=== PATIENT | female | born 1970 | race African-American/Black ===

== ENCOUNTER 2017-01-10 12:14 | Inpatient (IN) | payer BC, OTHER ==
[2017-01-10] VITALS (11 sets, daily range): BP systolic 110–138; BP diastolic 51–78
[~2017-01-10] VITALS: Ht 162.6 cm; Wt 74.8 kg
[2017-01-10] MEDS ORDERED: ADENOSINE 6 MG/2 ML VIAL. IV ONE ×2 (12:23→13:15)
[2017-01-10] MEDS ORDERED: dilTIAZem IV PUSH 25 MG/5 ML VIAL ONE (12:52)
[2017-01-10] MEDS ORDERED: IV NORMAL SALINE 1000ML BAG 1,000 ML IV SCH (13:00)
[2017-01-10 13:02] LABS: BASO % 0 % (0-3); EOS % 1 % (0-3); HEMATOCRIT 34.6 % (36.0-47.0); HEMOGLOBIN 11.4 g/dL (12.0-15.5); LYMPH # 2.5 x10^3/uL (1.0-4.8); LYMPH % 57 % (24-48); MEAN CORPUSCULAR HEMOGLOBIN 28 pg (25-35); MEAN CORPUSCULAR HGB CONC 33 g/dL (31-37); MEAN CORPUSCULAR VOLUME 84 fL (79-100); MONO % 14 % (0-9); NEUT % 27 % (31-73); PLATELET COUNT 150 x10^3/uL (140-400); RED BLOOD COUNT 4.14 x10^6/uL (3.50-5.40); RED CELL DISTRIBUTION WIDTH 14.6 % (11.5-14.5); WHITE BLOOD COUNT 4.4 x10^3/uL (4.0-11.0)
[2017-01-10 13:09] LABS: CALCIUM 8.7 mg/dL (8.5-10.1); CREATININE 0.6 mg/dL (0.6-1.0); GFR 130.2; POTASSIUM 3.9 mmol/L (3.5-5.1)
[2017-01-10] MEDS ORDERED: LIDOCAINE 2% TOPICAL JELLY 30GM TUBE. TP ONE (13:12)
[2017-01-10] MEDS ORDERED: BENZOCAINE ONE 20% MUCOSAL SPRAY. (13:12)
[2017-01-10] MEDS ORDERED: LIDOCAINE 2% VISCOUS 15 ML SOLUTION. ONE (13:12)
[2017-01-10 13:15] LABS: ALBUMIN 3.2 g/dL (3.4-5.0); ALBUMIN/GLOBULIN RATIO 0.8 (1.0-1.7); TOTAL BILIRUBIN 2.6 mg/dL (0.2-1.0); TOTAL PROTEIN 7.2 g/dL (6.4-8.2)
[2017-01-10] MEDS ORDERED: dilTIAZem IV PUSH 25 MG/5 ML VIAL IVP ONE (13:15)
--- NOTE | 2017-01-10 13:19 | RAD ---
Single view chest radiograph 01/10/2017 Clinical indication: Tachycardia. Comparison: None. Findings: Mild enlargement of the cardiac silhouette. Probable trace left pleural effusion. No pneumothorax or focal consolidation. Impression: Mild cardiomegaly with probable trace left pleural effusion.
[2017-01-10] MEDS: IV NORMAL SALINE 1000ML BAG 1,000 ML IV SCH (13:24)
--- NOTE | 2017-01-10 13:24 | PHYS DOC ---
Past Medical History Past Medical History: Anxiety Past Surgical History: Other Additional Past Surgical Histo: back Alcohol Use: Occasionally Drug Use: None Adult General Chief Complaint Chief Complaint: RAPID HEART RATE HPI HPI Patient is a 46 year old female who presents with complaint of dizziness and shortness of breath. Patient states that her symptoms started today but states that she has had recurrent symptoms over the past several weeks. Patient notes however that she started having edema in her lower extremities over the past 2- 3 days which has caused her concern. Patient states that her shortness of breath worsens with exertion. Patient has slight chest pressure but denies pain. The patient was found to have a heart rate above 200 in triage. Patient states that she has had no formal medical evaluation for high heart rate and is not on any heart medications at this time. Patient denies any fevers, nausea, or vomiting. Review of Systems Review of Systems Constitutional: Denies fever or chills [] Eyes: Denies change in visual acuity, redness, or eye pain [] HENT: Denies nasal congestion or sore throat [] Respiratory: Shortness of breath [] Cardiovascular: Chest pressure, dyspnea on exertion, lower extremity edema [] GI: Denies abdominal pain, nausea, vomiting, bloody stools or diarrhea [] : Denies dysuria or hematuria [] Musculoskeletal: Denies back pain or joint pain [] Integument: Denies rash or skin lesions [] Neurologic: Denies headache, focal weakness or sensory changes [] Current Medications Current Medications Current Medications Medications (Trade) Dose Ordered Sig/Byron Start Time Stop Time Status Last Admin Dose Admin Adenosine (Adenocard) 6 mg STK-MED ONCE 01/10/17 12:23 01/10/17 12:24 DC Diltiazem HCl (Cardizem) 25 mg STK-MED ONCE 01/10/17 12:52 01/10/17 12:53 DC Diltiazem HCl 125 mg/Dextrose 125 ml @ 0 mls/hr CONT PRN 01/10/17 13:00 Sodium Chloride 1,000 ml @ 100 mls/hr Q10H 01/10/17 13:00 01/10/17 22:59 Allergies Allergies Allergies Coded Allergies Type Severity Reaction Last Updated Verified No Known Drug Allergies 01/10/17 No Physical Exam Physical Exam Constitutional: Alert, afebrile, anxious, appears in moderate discomfort. [] HENT: Normocephalic, atraumatic, bilateral external ears normal, oropharynx moist, no oral exudates, nose normal. [] Eyes: PERRLA, EOMI, conjunctiva normal, no discharge. [] Neck: Normal range of motion, no tenderness, supple, no stridor. [] Cardiovascular: Tachycardia, irregular rhythm, no murmur [] Lungs & Thorax: None restricted air movement bilaterally, fine rales in bilateral lung bases [] Abdomen: Bowel sounds normal, soft, no tenderness, no masses, no pulsatile masses. [] Skin: Warm, dry, no erythema, no rash. [] Back: No tenderness, no CVA tenderness. [] Extremities: No tenderness, no cyanosis, no clubbing, ROM intact, 1+ pedal edema. [] Neurologic: Alert and oriented X 3, normal motor function, normal sensory function, no focal deficits noted. [] Current Patient Data Vital Signs Vital Signs Date Time Temp Pulse Resp B/P (MAP) Pulse Ox O2 Delivery O2 Flow Rate FiO2 01/10/17 13:00 178 139/78 (98) 99 01/10/17 12:24 98.9 22 Room Air 98.9 Lab Values Laboratory Tests Test 01/10/17 12:25 White Blood Count 4.4 x10^3/uL (4.0-11.0) Red Blood Count 4.14 x10^6/uL (3.50-5.40) Hemoglobin 11.4 g/dL (12.0-15.5) L Hematocrit 34.6 % (36.0-47.0) L Mean Corpuscular Volume 84 fL (79-100) Mean Corpuscular Hemoglobin 28 pg (25-35) Mean Corpuscular Hemoglobin Concent 33 g/dL (31-37) Red Cell Distribution Width 14.6 % (11.5-14.5) H Platelet Count 150 x10^3/uL (140-400) Neutrophils (%) (Auto) 27 % (31-73) L Lymphocytes (%) (Auto) 57 % (24-48) H Monocytes (%) (Auto) 14 % (0-9) H Eosinophils (%) (Auto) 1 % (0-3) Basophils (%) (Auto) 0 % (0-3) Neutrophils # (Auto) 1.2 x10^3uL (1.8-7.7) L Lymphocytes # (Auto) 2.5 x10^3/uL (1.0-4.8) Monocytes # (Auto) 0.6 x10^3/uL (0.0-1.1) Eosinophils # (Auto) 0.0 x10^3/uL (0.0-0.7) Basophils # (Auto) 0.0 x10^3/uL (0.0-0.2) Sodium Level 140 mmol/L (136-145) Potassium Level 3.9 mmol/L (3.5-5.1) Chloride Level 108 mmol/L (98-107) H Carbon Dioxide Level 22 mmol/L (21-32) Anion Gap 10 (6-14) Blood Urea Nitrogen 9 mg/dL (7-20) Creatinine 0.6 mg/dL (0.6-1.0) Estimated GFR (Cockcroft-Gault) 130.2 BUN/Creatinine Ratio 15 (6-20) Glucose Level 108 mg/dL (70-99) H Calcium Level 8.7 mg/dL (8.5-10.1) Total Bilirubin 2.6 mg/dL (0.2-1.0) H Aspartate Amino Transferase (AST) 69 U/L (15-37) H Alanine Aminotransferase (ALT) 40 U/L (14-59) Alkaline Phosphatase 253 U/L (46-116) H Creatine Kinase 46 U/L (26-192) Creatine Kinase MB (Mass) < 0.5 ng/mL (0.0-3.6) Creatine Kinase MB Relative Index % (0-4) Troponin I Quantitative 0.017 ng/mL (0.000-0.055) RK-Vna-F-Type Natriuretic Peptide 2336 pg/mL (0-124) H Total Protein 7.2 g/dL (6.4-8.2) Albumin 3.2 g/dL (3.4-5.0) L Albumin/Globulin Ratio 0.8 (1.0-1.7) L Laboratory Tests 01/10/17 12:25 Laboratory Tests 01/10/17 12:25 EKG EKG Rhythm strip interpretation by me: Heart rate 230 bpm, A. fib with RVR versus possible SVT Radiology/Procedures Radiology/Procedures [facility] [address] [place] [address] IMAGING REPORT Signed PATIENT: BERTRAND SCHULTZ ACCOUNT: [id number] : 1970 LOCATION: ER AGE: 46 SEX: F EXAM STATUS: REG ER ORD. PHYSICIAN: BYRON NICHOLAS MD REASON: tachycardia PROCEDURE: PORTABLE CHEST 1V Single view chest radiograph 01/10/2017 Clinical indication: Tachycardia. Comparison: None. Findings: Mild enlargement of the cardiac silhouette. Probable trace left pleural effusion. No pneumothorax or focal consolidation. Impression: Mild cardiomegaly with probable trace left pleural effusion. DICTATED and SIGNED BY: RODRIGO ERAZO MD DATE: 01/10/171315 CC: BYRON NICHOLAS MD; UNKNOWN PCP NAME ~ [] Course & Med Decision Making Course & Med Decision Making Pertinent Labs and Imaging studies reviewed. (See chart for details) Patient was found to be in a life-threatening tachydysrhythmia upon arrival to the emergency department. Vagal maneuvers were attempted which did not cardiovert the patient. The patient was given 2 doses of IV adenosine. The first dose was 6 mg and the second was 12 mg. Both doses of medication failed to cardiovert the patient. I consulted Dr. Mohamud of cardiology who came to evaluate the patient at bedside. During evaluation, the patient was started on diltiazem treatment. The patient continues to have a tachycardia of 170-190 with irregular pattern consistent with A. fib with RVR. After discussing with the patient, she has agreed to go to PACU with Dr. Mohamud for echocardiogram and electrical cardioversion. Due to new onset, the patient will need admission to the hospital for more detailed cardiac workup. I spoke with Dr. Palencia who accepted care patient in hospital. Critical care time excluding procedures: 45 minutes Dragon Disclaimer Dragon Disclaimer This electronic medical record was generated, in whole or in part, using a voice recognition dictation system. Departure Departure Impression: Primary Impression: Atrial fibrillation with RVR Additional Impression: Acute congestive heart failure Disposition: ADMITTED INPATIENT Admitting Physician: Ra Palencia Condition: GUARDED Referrals: UNKNOWN PCP NAME (PCP) Problem Qualifiers Additional Impression: Acute congestive heart failure Congestive heart failure type: unspecified congestive heart failure type Qualified Codes: I50.9 - Heart failure, unspecified BYRON NICHOLAS MD Jan 10, 2017 13:24
[2017-01-10 13:29] LABS: CKMB MASS < 0.5 ng/mL (0.0-3.6); CREATINE KINASE 46 U/L (26-192)
[2017-01-10] MEDS ORDERED: ONDANSETRON PF 4 MG/2 ML VIAL. IV PRN ×2 (13:30→14:30)
[2017-01-10] MEDS ORDERED: ACETAMINOPHEN 325 MG TABLET. PO PRN ×2 (13:30→14:30)
[2017-01-10] MEDS ORDERED: LIDOCAINE 2% 100 MG/5 ML SYRINGE. ONE (13:35)
[2017-01-10] MEDS ORDERED: PROPOFOL 20 ML IV ONE ×2 (13:36→13:40)
--- NOTE | 2017-01-10 13:36 | ACF ---
Admit Criteria Forms Admit Criteria Forms Admit Criteria Forms ATRIAL FIBRILLATION Clinical Indications for Admission to Inpatient Care (Place 'X' for any and all applicable criteria): Admission indicated for ANY ONE of the following(1)(2)(3)(4)(5) : [ ]I. Myocardial ischemia [X]II. Dyspnea or hypoxemia [ ]III. Hemodynamic instability [ ]IV. Heart failure (e.g., pulmonary edema) (7) [ ]V. New-onset (less than 48 hours) atrial fibrillation with high risk for causing complications secondary to comorbidities (eg, symptomatic heart failure ) [ ]. Altered mental status [ ]VII. Syncope [ ]VIII. Patient has implantable cardioverter defibrillator that has fired more than once within past 24hr or needs immediate adjustment of settings that cannot be done other than in inpatient setting. (8) [ ]IX. Suspected accessory pathway (e.g., Imvea-Bqdgdoknr-Ihhjb syndrome) on ECG [ ]X. Recent systemic thromboembolism (eg, stroke) [ ]XI. Medication toxicity (e.g., digitalis) causing arrhythmia(9) [ ]XII. Underlying medical condition that necessitates inpatient care (e.g., thyrotoxicosis, pneumonia) (10) [ ]XIII. Continuous ECG monitoring is required for condition causing arrhythmia (e.g., severe hyperkalemia, hypokalemia, acid-base disturbance).(11)(12)(13) [ ]XIV. Initiation of antiarrhythmic drug therapy is needed in patient at high risk of adverse effects as indicated by ANY ONE of the following: [ ]a) Significant structural heart disease (e.g., reduced ejection fraction, congenital heart disease, valvular heart disease) [ ]b) Prolonged QT interval [ ]c) Underlying sinus node or atrioventricular conduction disturbances [ ]d) Need for treatment with antiarrhythmic drugs that have significant proarrhythmic potential (e.g., dofetilide, sotalol, procainamide) [ ]e) Patient whose sinus rhythm has never been observed on ECG [ ]XV. Intolerable symptoms despite optimal outpatient treatment [ ]XVI. Elective or urgent cardioversion that cannot be performed on outpatient basis or during observation care. [A] (Use also Atrial Fibrillation: Observation Care ) as appropriate.(14) [ ]XVII.Contraindications and/or Inappropriate clinical situations for Observational Care in patients with Atrial Fibrillation, when ANY ONE of the following is required: [ ]a) Patient with High risk of cardiac embolism (e.g, patients with previous cardiac embolism, LVEF < 40%, age >75 and patients with prosthetic valve) 18 [ ]b) Patient with Moderate risk including DM patient, CAD and patient aged 65-75 18 [ ]c) Patient with any change in cardiac biomarker especially troponin should be managed as high risk in an inpatient setting 19 [ ]d) Physician judgement irrespective of ECG and other diagnostic findings 20 [ ]XVIII.General contraindications and/or Inappropriate clinical situations for Observational Care in patients with Atrial Fibrillation, when ANY ONE of the following is required: [ ]a) Prediction of prolongation of LOS based on ANY ONE of the following may be considered as a contraindication for observational care 2, 3, 4, 5, 6, 7, 8, 9, 10, 11 [ ]i) Age > 65 yrs. [ ]ii) Patient arriving by ambulance [ ]iii) Patient with high acuity [ ]iv) Patient requiring vital sign monitoring [ ]v) Patient on IV medication [ ]b) Systolic blood pressures 180mmHg 3,12 [ ]c) Patient with altered mental status including delirium and other alteration of consciousness3 [ ]d) Patient whose discharge disposition will be to a penitentiary home or rehabilitation home should not be managed in Emergency Department Observation Unit. CMS rule requires 3 days hospital stay before such placement.3,13 [ ]e) Patient with failure to thrive due to broad array of etiologies 3,16,17 [ ]f) Inability to ambulate 3,14 Extended stay beyond goal length of stay may be needed for (1)(25)(26): [ ]a) Unstable comorbidities [ ]b) Persistently uncontrolled atrial fibrillation or other arrhythmias [ ]c) Acute thromboembolic event (e.g., stroke, limb ischemia) [ ]d) Need for inpatient attainment of full anticoagulation The original [employer] content created by [employer] has been revised. The portions of the content which have been revised are identified through the use of italic text or in bold, and [employer] has neither reviewed nor approved the modified material. All other unmodified content is copyright [employer]. Please see references footnoted in the original [employer] edition 2016 STEPHANIE SULTANA Jan 10, 2017 13:36
[2017-01-10] MEDS ORDERED: AMIODARONE 150 MG/3 ML VIAL ONE (13:53)
[2017-01-10] MEDS ORDERED: AMIODARONE 150 MG/3 ML VIAL IVP ONE ×2 (13:55→14:15)
--- NOTE | 2017-01-10 14:29 | PDOC1 ---
History and Physical Date of Admission Date of Admission 01/10/17 Identification/Chief Complaint Chief Complaint palpitation, dizzy Problems: Source Source: Chart review, Patient History of Present Illness History of Present Illness Patient is a 46 year old female who presents with complaint of dizziness, palpitation for a few weeks. Pt has no PCP, 1PPD. PT feels this palpitation, some sob, worse with exertion for weeks. She also feels some lightheaded, and noticed bl leg edema x2 days, and then came to ER. no fever, chills, N/V, cough, chest pain. in ER, she was found HR 200s, rapid afib, BP ok. pt got cardizem and adenosine , still rapid HR. Past Medical History Past Medical History anxiety Past Surgical History Past Surgical History back sx Family History Family History: Hypertension Social History Smoke: 1 pack per day Drugs: None Current Problem List Problem List Problems Medical Problems: (1) Acute congestive heart failure Status: Acute Current Medications Current Medications Current Medications Medications (Trade) Dose Ordered Sig/Byron Start Time Stop Time Status Last Admin Dose Admin Acetaminophen (Tylenol) 650 mg PRN Q4HRS PRN 01/10/17 13:30 01/11/17 13:29 Adenosine (Adenocard) 18 mg 1X ONCE 01/10/17 13:15 01/10/17 13:16 DC 01/10/17 13:02 18 MG Amiodarone HCl (Cordarone) 150 mg 1X ONCE 01/10/17 14:15 01/10/17 14:16 DC Benzocaine (Hurricaine One) 1 spray STK-MED ONCE 01/10/17 13:12 01/10/17 13:13 DC Diltiazem HCl (Cardizem) 20 mg 1X ONCE 01/10/17 13:15 01/10/17 13:16 DC 01/10/17 12:53 20 MG Diltiazem HCl 125 mg/Dextrose 125 ml @ 0 mls/hr CONT PRN 01/10/17 13:00 01/10/17 13:05 5 MLS/HR Enoxaparin Sodium (Lovenox 80mg Syringe) 80 mg 1X ONCE 01/10/17 13:15 01/10/17 13:16 DC 01/10/17 13:50 80 MG Lidocaine HCl (Lidocaine HCl 2% Abboject) 100 mg STK-MED ONCE 01/10/17 13:35 01/10/17 13:36 DC Lidocaine HCl (Viscous Lidocaine) 15 ml STK-MED ONCE 01/10/17 13:12 01/10/17 13:13 DC Lidocaine HCl (Xylocaine 2% Topical 30gm Tube) 30 lilli STK-MED ONCE 01/10/17 13:12 01/10/17 13:13 DC Ondansetron HCl (Zofran) 4 mg PRN Q8HRS PRN 01/10/17 13:30 01/11/17 13:29 Propofol 20 ml @ As Directed STK-MED ONCE 01/10/17 13:40 01/10/17 13:41 DC Sodium Chloride 1,000 ml @ 50 mls/hr Q20H 01/10/17 13:24 01/11/17 13:23 Allergies Allergies Allergies Coded Allergies Type Severity Reaction Last Updated Verified No Known Drug Allergies 01/10/17 No ROS Review of System CONSTITUTIONAL: No fever or chills EYES: No recent changes SKIN: No rash or itching CARDIOVASCULAR: No chest pain, syncope, palpitations, or edema RESPIRATORY: No SOB or cough GASTROINTESTINAL: No nausea, vomiting or abdominal pain NEUROLOGICAL: No headaches or weakness ENDOCRINE: No cold or heat intolerance GENITOURINARY: No urgency or frequency of urination MUSCULOSKELETAL: No back pain or joint pain LYMPHATICS: No enlarged lymph nodes PSYCHIATRIC: No anxiety or depression Physical Exam Physical Exam GEN.: No apparent distress. Alert and oriented. HEENT: Head is normocephalic, atraumatic NECK: Supple. LUNGS: Clear to auscultation. HEART: very fast, irregular at 160s, Peripheral pulses intact ABDOMEN: Soft, nontender. Positive bowel sounds. EXTREMITIES: Without any cyanosis. bl leg 2+ edema NEUROLOGIC: Normal speech, normal tone PSYCHIATRIC: Normal affect, normal mood. SKIN: No ulcerations Vitals Vitals Vital Signs Date Time Temp Pulse Resp B/P (MAP) Pulse Ox O2 Delivery O2 Flow Rate FiO2 01/10/17 14:00 Nasal Cannula 2 01/10/17 14:00 98.9 190 18 159/104 99 98.9 Labs Labs Laboratory Tests Test 01/10/17 12:25 White Blood Count 4.4 x10^3/uL (4.0-11.0) Red Blood Count 4.14 x10^6/uL (3.50-5.40) Hemoglobin 11.4 g/dL (12.0-15.5) Hematocrit 34.6 % (36.0-47.0) Mean Corpuscular Volume 84 fL (79-100) Mean Corpuscular Hemoglobin 28 pg (25-35) Mean Corpuscular Hemoglobin Concent 33 g/dL (31-37) Red Cell Distribution Width 14.6 % (11.5-14.5) Platelet Count 150 x10^3/uL (140-400) Neutrophils (%) (Auto) 27 % (31-73) Lymphocytes (%) (Auto) 57 % (24-48) Monocytes (%) (Auto) 14 % (0-9) Eosinophils (%) (Auto) 1 % (0-3) Basophils (%) (Auto) 0 % (0-3) Neutrophils # (Auto) 1.2 x10^3uL (1.8-7.7) Lymphocytes # (Auto) 2.5 x10^3/uL (1.0-4.8) Monocytes # (Auto) 0.6 x10^3/uL (0.0-1.1) Eosinophils # (Auto) 0.0 x10^3/uL (0.0-0.7) Basophils # (Auto) 0.0 x10^3/uL (0.0-0.2) Sodium Level 140 mmol/L (136-145) Potassium Level 3.9 mmol/L (3.5-5.1) Chloride Level 108 mmol/L (98-107) Carbon Dioxide Level 22 mmol/L (21-32) Anion Gap 10 (6-14) Blood Urea Nitrogen 9 mg/dL (7-20) Creatinine 0.6 mg/dL (0.6-1.0) Estimated GFR (Cockcroft-Gault) 130.2 BUN/Creatinine Ratio 15 (6-20) Glucose Level 108 mg/dL (70-99) Calcium Level 8.7 mg/dL (8.5-10.1) Total Bilirubin 2.6 mg/dL (0.2-1.0) Aspartate Amino Transf (AST/SGOT) 69 U/L (15-37) Alanine Aminotransferase (ALT/SGPT) 40 U/L (14-59) Alkaline Phosphatase 253 U/L (46-116) Creatine Kinase 46 U/L (26-192) Creatine Kinase MB (Mass) < 0.5 ng/mL (0.0-3.6) Creatine Kinase MB Relative Index % (0-4) Troponin I Quantitative 0.017 ng/mL (0.000-0.055) CD-Rmr-I-Type Natriuretic Peptide 2336 pg/mL (0-124) Total Protein 7.2 g/dL (6.4-8.2) Albumin 3.2 g/dL (3.4-5.0) Albumin/Globulin Ratio 0.8 (1.0-1.7) Laboratory Tests Test 01/10/17 12:25 White Blood Count 4.4 x10^3/uL (4.0-11.0) Red Blood Count 4.14 x10^6/uL (3.50-5.40) Hemoglobin 11.4 g/dL (12.0-15.5) Hematocrit 34.6 % (36.0-47.0) Mean Corpuscular Volume 84 fL (79-100) Mean Corpuscular Hemoglobin 28 pg (25-35) Mean Corpuscular Hemoglobin Concent 33 g/dL (31-37) Red Cell Distribution Width 14.6 % (11.5-14.5) Platelet Count 150 x10^3/uL (140-400) Neutrophils (%) (Auto) 27 % (31-73) Lymphocytes (%) (Auto) 57 % (24-48) Monocytes (%) (Auto) 14 % (0-9) Eosinophils (%) (Auto) 1 % (0-3) Basophils (%) (Auto) 0 % (0-3) Neutrophils # (Auto) 1.2 x10^3uL (1.8-7.7) Lymphocytes # (Auto) 2.5 x10^3/uL (1.0-4.8) Monocytes # (Auto) 0.6 x10^3/uL (0.0-1.1) Eosinophils # (Auto) 0.0 x10^3/uL (0.0-0.7) Basophils # (Auto) 0.0 x10^3/uL (0.0-0.2) Sodium Level 140 mmol/L (136-145) Potassium Level 3.9 mmol/L (3.5-5.1) Chloride Level 108 mmol/L (98-107) Carbon Dioxide Level 22 mmol/L (21-32) Anion Gap 10 (6-14) Blood Urea Nitrogen 9 mg/dL (7-20) Creatinine 0.6 mg/dL (0.6-1.0) Estimated GFR (Cockcroft-Gault) 130.2 BUN/Creatinine Ratio 15 (6-20) Glucose Level 108 mg/dL (70-99) Calcium Level 8.7 mg/dL (8.5-10.1) Total Bilirubin 2.6 mg/dL (0.2-1.0) Aspartate Amino Transf (AST/SGOT) 69 U/L (15-37) Alanine Aminotransferase (ALT/SGPT) 40 U/L (14-59) Alkaline Phosphatase 253 U/L (46-116) Creatine Kinase 46 U/L (26-192) Creatine Kinase MB (Mass) < 0.5 ng/mL (0.0-3.6) Creatine Kinase MB Relative Index % (0-4) Troponin I Quantitative 0.017 ng/mL (0.000-0.055) NL-Laq-V-Type Natriuretic Peptide 2336 pg/mL (0-124) Total Protein 7.2 g/dL (6.4-8.2) Albumin 3.2 g/dL (3.4-5.0) Albumin/Globulin Ratio 0.8 (1.0-1.7) VTE Prophylaxis Ordered VTE Prophylaxis Devices: Yes VTE Pharmacological Prophylaxi: Yes Assessment/Plan Assessment/Plan new onset afib with RVR tobaccoism dyspnea with acute CHF exacerbation, likely systolic and diastolic anxiety elevated transaminitis, possible 2/2 chf plan: card consulted, will do emergent cardioversion today check tsh, lipid panel, echo waiting for procedure and lab result, will need meds for card issues dvt ppx, may need AC. admit >2nights, ICU ob for today labs tmr EMMETT PEÑALOZA MD Jan 10, 2017 14:29
[2017-01-10] MEDS ORDERED: traMADol 50 MG TABLET PO PRN (14:30)
[2017-01-10] MEDS ORDERED: DOCUSATE SODIUM 100 MG CAPSULE. PO PRN (14:30)
[2017-01-10] MEDS ORDERED: hydrALAZINE 20 MG/ML VIAL. IVP PRN (14:30)
[2017-01-10] MEDS ORDERED: MORPHINE SULFATE 2 MG/ML DISP.SYRIN. IV PRN (14:30)
[2017-01-10] MEDS ORDERED: AMIODARONE 900 MG in IV DEXTROSE 5% 500 ML IV PRN ×5 (15:00→16:00)
[2017-01-10] MEDS ORDERED: ENOXAPARIN 40 MG/0.4 ML SYRINGE. SQ SCH (15:00)
[2017-01-10] MEDS ORDERED: AMIODARONE 150 MG in IV DEXTROSE 5% 100 ML IV ONE (15:00)
[2017-01-10] MEDS ORDERED: DIGOXIN IV 500 MCG/2 ML AMPUL. IV ONE (15:45)
--- NOTE | 2017-01-10 16:23 | CARD ---
APPROVED REPORT EXAM: Transesophageal echocardiogram with color flow Doppler and Synchronized Cardioversion. INDICATION Atrial Fibrillation Reason For Test : Rule out Intracardiac Thrombus. PROCEDURE After obtaining informed consent, patient underwent transesophageal echo in the PACU. Type of Sedation : General Anesthesia Sedation was provided by anesthesiologist, see EMR for medications administered. Transesophageal probe was inserted and advanced into esophagus by Elvin Mohamud MD. The BRANDEN was performed without complications. Synchronized Cardioversion attempted: Unsuccessful Rhythm following Synchronized Cardioversion: Atrial fibrillation Throughout the procedure, the blood pressure, pulse oximetry, cardiac rhythm, and rate were monitored . The patient tolerated the procedure without adverse effects. Recovery from conscious sedation was une ventful and vital signs were stable. LEFT VENTRICLE The left ventricle is normal size. There is normal left ventricular wall thickness. Left ventricle ej ection fraction is severely impaired. The Ejection Fraction is 15% by visual estimation. Due to HR > 200, this is likely underestimation. There is severe global hypokinesis of the left ventricle. No lef t ventricle thrombus noted on this study. There is no left ventricular aneurysm. RIGHT VENTRICLE The right ventricle is normal size. Systolic function is mildly to moderately reduced. ATRIA The left atrium appears dilated. The right atrium appears dilated. The interatrial septum is intact w ith no evidence for an atrial septal defect or patent foramen ovale as noted on 2-D or Doppler imagin g. There is no thrombus noted in the left atrial appendage. AORTIC VALVE The aortic valve is normal in structure and function. The aortic valve is trileaflet. Doppler and Col or Flow revealed no significant aortic regurgitation. There is no significant aortic valvular stenosi s. MITRAL VALVE The mitral valve is normal in structure. Doppler and Color Flow revealed mild mitral regurgitation. TRICUSPID VALVE The tricuspid valve is normal in structure. Doppler and Color Flow revealed mild tricuspid regurgitat ion. There is no tricuspid valve stenosis. PULMONIC VALVE The pulmonic valve is not well visualized. Doppler and Color Flow revealed no pulmonic valvular regur gitation. GREAT VESSELS The aortic root appears normal size. Normal pulmonary venous flow (Doppler). The IVC was visualized a nd appears normal in size. The SVC was visualized and appears normal in size. Critical Notification Critical Value: No <Conclusion> Left ventricle ejection fraction is severely impaired. The Ejection Fraction is 15% by visual estimat ion. Due to HR > 200, this is likely underestimation. There is severe global hypokinesis of the left ventricle. There is no thrombus noted in the left atrial appendage. Unsuccessful cardioversion
--- NOTE | 2017-01-10 17:11 | PDOC2 ---
CARDIOLOGY CONSULT NOTE CHEIF COMPLAINT: Shortness of breath and palpitations Problems: HPI: Pleasant 46-year-old woman who came into the ER with progressive dyspnea and palpitations. She was noted to be in atrial fibrillation with a rapid ventricular response initially thought to be possibly related to supraventricular tachycardia specifically AVNRT. She was given adenosine 3 up to a dose of 18 mg which did not resolve her problem. She was then started on a Cardizem drip. Despite this her heart rate was above 200 with persistent dyspnea and mild hypotension. In this setting a urgent T guided cardioversion was planned after discussion of risks and benefits with the patient. She was taken to the PACU and a transesophageal echo was performed which revealed moderate to severe LV dysfunction and no evidence of atrial thrombus. She was given anticoagulation prior to cardioversion with Lovenox. She had unsuccessful cardioversion 2 with a maximum of 360 J. Subsequently, she was also initiated on amiodarone therapy with intravenous drip after bolus. This ultimately stabilized her heart rate and brought it down to approximately 150 bpm. Given her significant LV dysfunction and persistent tachycardia she was transferred to the ICU. In the ICU she was also administered digoxin for further heart rate control. In speaking with the patient she reports that she's been ill for approximately 3 years and has not sought medical attention. She denies any syncope but does have chest pressure and dyspnea. Her family corroborates to us that she's been drinking heavily over the course of last 3 years up to half a pint daily. She also smokes heavily. 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 FAMHX: Noncontributory CURRENT MEDS: Current Medications Medications (Trade) Dose Ordered Sig/Byron Start Time Stop Time Status Last Admin Dose Admin Acetaminophen (Tylenol) 650 mg PRN Q6HRS PRN 01/10/17 14:30 Adenosine (Adenocard) 18 mg 1X ONCE 01/10/17 13:15 01/10/17 13:16 DC 01/10/17 13:02 18 MG Amiodarone HCl (Cordarone) 150 mg 1X ONCE 01/10/17 14:15 01/10/17 14:16 DC 01/10/17 14:20 150 MG Amiodarone HCl 150 mg/Dextrose 103 ml @ 618 mls/hr 1X ONCE 01/10/17 15:00 01/10/17 15:09 DC Amiodarone HCl 900 mg/Dextrose 518 ml @ 0 mls/hr CONT PRN 01/10/17 16:00 Benzocaine (Hurricaine One) 1 spray STK-MED ONCE 01/10/17 13:12 01/10/17 13:13 DC Digoxin (Lanoxin) 500 mcg 1X ONCE 01/10/17 15:45 01/10/17 15:46 DC 01/10/17 15:49 500 MCG Diltiazem HCl (Cardizem) 20 mg 1X ONCE 01/10/17 13:15 01/10/17 13:16 DC 01/10/17 12:53 20 MG Diltiazem HCl 125 mg/Dextrose 125 ml @ 0 mls/hr CONT PRN 01/10/17 13:00 01/10/17 13:05 5 MLS/HR Docusate Sodium (Colace) 100 mg PRN DAILY PRN 01/10/17 14:30 Enoxaparin Sodium (Lovenox 40mg Syringe) 40 mg Q24H 01/10/17 15:00 01/10/17 15:47 DC Enoxaparin Sodium (Lovenox 80mg Syringe) 80 mg BID 01/10/17 21:00 Hydralazine HCl (Apresoline) 10 mg PRN Q4HRS PRN 01/10/17 14:30 Lidocaine HCl (Lidocaine HCl 2% Abboject) 100 mg STK-MED ONCE 01/10/17 13:35 01/10/17 13:36 DC Lidocaine HCl (Viscous Lidocaine) 15 ml STK-MED ONCE 01/10/17 13:12 01/10/17 13:13 DC Lidocaine HCl (Xylocaine 2% Topical 30gm Tube) 30 lilli STK-MED ONCE 01/10/17 13:12 01/10/17 13:13 DC Morphine Sulfate 2 mg PRN Q2HR PRN 01/10/17 14:30 Ondansetron HCl (Zofran) 4 mg PRN Q6HRS PRN 01/10/17 14:30 Propofol 20 ml @ As Directed STK-MED ONCE 01/10/17 13:40 01/10/17 13:41 DC Sodium Chloride 1,000 ml @ 50 mls/hr Q20H 01/10/17 13:24 01/11/17 13:23 Tramadol HCl (Ultram) 50 mg PRN Q6HRS PRN 01/10/17 14:30 ALLERGIES: Allergies Coded Allergies Type Severity Reaction Last Updated Verified No Known Drug Allergies 01/10/17 No ROS: 14 point system was reviewed and is negative other then described in HPI and past medical and surgical history. PHYSICAL EXAM: Vital Signs: Vital Signs Date Time Temp Pulse Resp B/P (MAP) Pulse Ox O2 Delivery O2 Flow Rate FiO2 01/10/17 16:08 Nasal Cannula 2.0 01/10/17 15:49 157 116/76 01/10/17 15:15 22 99 01/10/17 14:45 98.9 98.9 Physical Exam: GEN.: Significant distress and anxiety related to tachyarrhythmia. Alert and oriented 3. HEENT: Head is normocephalic, atraumatic NECK: Supple. LUNGS: Clear to auscultation. HEART: Irregularly irregular. Difficult to auscultate heart sounds due to tachycardia. Diminished pulses. ABDOMEN: Mildly distended. Hypoactive bowel sounds. EXTREMITIES: Without any cyanosis. NEUROLOGIC: Normal speech, normal tone PSYCHIATRIC: Significant anxiety. SKIN: No ulcerations DIAGNOSTIC TESTING: Transesophageal echocardiogram demonstrates no evidence of atrial thrombus. She has no significant valvular heart disease. She does have diffuse global hypokinesis with ejection fraction of less than 25%.. Although the ejection fraction may be underestimated due to significant tachycardia. Lab Laboratory Tests Test 01/10/17 12:25 White Blood Count 4.4 x10^3/uL (4.0-11.0) Red Blood Count 4.14 x10^6/uL (3.50-5.40) Hemoglobin 11.4 g/dL (12.0-15.5) L Hematocrit 34.6 % (36.0-47.0) L Mean Corpuscular Volume 84 fL (79-100) Mean Corpuscular Hemoglobin 28 pg (25-35) Mean Corpuscular Hemoglobin Concent 33 g/dL (31-37) Red Cell Distribution Width 14.6 % (11.5-14.5) H Platelet Count 150 x10^3/uL (140-400) Neutrophils (%) (Auto) 27 % (31-73) L Lymphocytes (%) (Auto) 57 % (24-48) H Monocytes (%) (Auto) 14 % (0-9) H Eosinophils (%) (Auto) 1 % (0-3) Basophils (%) (Auto) 0 % (0-3) Neutrophils # (Auto) 1.2 x10^3uL (1.8-7.7) L Lymphocytes # (Auto) 2.5 x10^3/uL (1.0-4.8) Monocytes # (Auto) 0.6 x10^3/uL (0.0-1.1) Eosinophils # (Auto) 0.0 x10^3/uL (0.0-0.7) Basophils # (Auto) 0.0 x10^3/uL (0.0-0.2) Sodium Level 140 mmol/L (136-145) Potassium Level 3.9 mmol/L (3.5-5.1) Chloride Level 108 mmol/L (98-107) H Carbon Dioxide Level 22 mmol/L (21-32) Anion Gap 10 (6-14) Blood Urea Nitrogen 9 mg/dL (7-20) Creatinine 0.6 mg/dL (0.6-1.0) Estimated GFR (Cockcroft-Gault) 130.2 BUN/Creatinine Ratio 15 (6-20) Glucose Level 108 mg/dL (70-99) H Calcium Level 8.7 mg/dL (8.5-10.1) Total Bilirubin 2.6 mg/dL (0.2-1.0) H Aspartate Amino Transf (AST/SGOT) 69 U/L (15-37) H Alkaline Phosphatase 253 U/L (46-116) H Creatine Kinase 46 U/L (26-192) Creatine Kinase MB (Mass) < 0.5 ng/mL (0.0-3.6) Creatine Kinase MB Relative Index % (0-4) Total Protein 7.2 g/dL (6.4-8.2) Albumin 3.2 g/dL (3.4-5.0) L Albumin/Globulin Ratio 0.8 (1.0-1.7) L ASSESSMENT: 1. 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 Atrial for ablation with a rapid ventricular response 3. Tobacco abuse and alcohol abuse PLAN: 1. I discussed extensively with the patient's family and her regarding the gravity of her situation. It appears that she has been having trouble for several years now and unfortunate has had unwanted weight loss and hair loss. 2. We will check a TSH tomorrow morning. 3. Continue Lovenox 80 mg subcutaneous twice a day for an to regulation given recent cardioversion 4. Continue amiodarone drip 5. Continue digoxin load 6. Reassess need for further agents in 24 hours. Thank you for this consultation and we will follow along closely. Discussed with the ER staff and hospitalist service. LOPEZ GONZALEZ MD Jan 10, 2017 17:11
[2017-01-10] MEDS ORDERED: ALPRAZolam 0.25 MG TABLET PO PRN (17:30)
[2017-01-10] MEDS ORDERED: LORazepam 1 MG TABLET PO PRN (17:30)
[2017-01-10] MEDS: NICOTINE 21MG PATCH. TD SCH (17:54)
[2017-01-10] MEDS ORDERED: PHENOL ORAL SPRAY 177ML BOTTLE. PO PRN (20:00)
[2017-01-10] MEDS: DIGOXIN IV 500 MCG/2 ML AMPUL. IV SCH (21:58)
[2017-01-11] VITALS (23 sets, daily range): BP systolic 97–140; BP diastolic 42–88
[2017-01-11] MEDS: DIGOXIN IV 500 MCG/2 ML AMPUL. IV SCH (04:13)
[2017-01-11 05:47] LABS: BASO % 0 % (0-3); EOS % 1 % (0-3); HEMATOCRIT 33.5 % (36.0-47.0); HEMOGLOBIN 11.1 g/dL (12.0-15.5); LYMPH # 3.3 x10^3/uL (1.0-4.8); LYMPH % 69 % (24-48); MEAN CORPUSCULAR HEMOGLOBIN 28 pg (25-35); MEAN CORPUSCULAR HGB CONC 33 g/dL (31-37); MEAN CORPUSCULAR VOLUME 84 fL (79-100); MONO % 13 % (0-9); NEUT % 17 % (31-73); PLATELET COUNT 132 x10^3/uL (140-400); RED BLOOD COUNT 4.01 x10^6/uL (3.50-5.40); RED CELL DISTRIBUTION WIDTH 14.8 % (11.5-14.5); WHITE BLOOD COUNT 4.7 x10^3/uL (4.0-11.0)
[2017-01-11 05:58] LABS: CALCIUM 8.7 mg/dL (8.5-10.1); CREATININE 0.5 mg/dL (0.6-1.0); GFR 160.7; POTASSIUM 3.9 mmol/L (3.5-5.1)
--- NOTE | 2017-01-11 06:02 | EKG ---
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
[2017-01-11 06:04] LABS: CHOLESTEROL/HDL RATIO 4.1
[2017-01-11 07:04] LABS: ALBUMIN/GLOBULIN RATIO 0.8 (1.0-1.7); CALCIUM 9.2 mg/dL (8.5-10.1); CREATININE 0.5 mg/dL (0.6-1.0); DIRECT BILIRUBIN 1.7 mg/dL (0.0-0.2); GFR 160.7; POTASSIUM 3.9 mmol/L (3.5-5.1); TOTAL BILIRUBIN 2.7 mg/dL (0.2-1.0); TOTAL PROTEIN 6.8 g/dL (6.4-8.2)
[2017-01-11] MEDS ORDERED: ANTI-COAG MONITOR BY PHARMACY. MC PRN (08:00)
[2017-01-11] MEDS ORDERED: FUROSEMIDE 40 MG/4 ML VIAL. IVP ONE (08:30)
[2017-01-11] MEDS ORDERED: DIGOXIN 125 MCG TABLET. PO ONE (08:30)
[2017-01-11 08:34] LABS: % EOS 1 % (0-5); PLT ESTIMATE ADEQUATE (ADEQUATE)
[2017-01-11] MEDS: NICOTINE 21MG PATCH. TD SCH (09:00)
[2017-01-11] MEDS: IV NORMAL SALINE 1000ML BAG 1,000 ML IV SCH (09:24)
--- NOTE | 2017-01-11 11:28 | CARD ---
APPROVED REPORT EXAM: Two-dimensional and M-mode echocardiogram with Doppler and color Doppler. Other Information Quality : GoodHR: 128bpm Rhythm : Atrial Fibrillation/Tachycardia INDICATION Atrial Fibrillation LV Function:Systolic Congestive Heart Failure 2D DIMENSIONS RVDd3.7 (2.9-3.5cm)Left Atrium(2D)4.0 (1.6-4.0cm) IVSd1.0 (0.7-1.1cm)Aortic Root(2D)3.0 (2.0-3.7cm) LVDd5.3 (3.9-5.9cm)LVOT Diameter2.3 (1.8-2.4cm) PWd0.7 (0.7-1.1cm)LVDs3.9 (2.5-4.0cm) FS (%) 26.4 %SV68.0 ml LVEF(%)51.3 (>50%) Aortic Valve AoV Peak Camron.169.3cm/sAoV VTI24.3cm AO Peak GR.11.5mmHgLVOT Peak Camron.127.6cm/s AO Mean GR.6mmHgAVA (VMAX)3.16cm2 Mitral Valve MV E Peak Gr.8mmHgMV E Mean Gr.6mmHg Pulmonary Valve PV Peak Qnexqsgl33.8cm/s Tricuspid Valve TR P. Diecpbof080xl/sTR Peak Gr.30mmHg Pulmonary Vein S1 Ibllnkgg68.8cm/s LEFT VENTRICLE The left ventricle is normal size. There is normal left ventricular wall thickness. Left ventricle sy stolic function is mildly impaired. The overall LV function has improved in comparison to 01/10/2017 TE E exam. The Ejection Fraction is now 40%. There is mild global hypokinesis of the left ventricle. The re is a flattened septum consistent with right ventricle volume overload. Tissue Doppler imaging reve als moderate left ventricular diastolic dysfunction. No left ventricle thrombus noted on this study. RIGHT VENTRICLE The right ventricle is mildly dilated. There is normal right ventricular wall thickness. The right ve ntricular systolic function is normal. ATRIA The left atrium is moderately dilated. The right atrium is mildly dilated. The interatrial septum is intact with no evidence for an atrial septal defect or patent foramen ovale as noted on 2-D or Dopple r imaging. AORTIC VALVE The aortic valve is mildly thickened. The aortic valve is trileaflet. Doppler and Color Flow revealed no significant aortic regurgitation. There is no significant aortic valvular stenosis. MITRAL VALVE There is no evidence of mitral valve prolapse. There is no mitral valve stenosis. Doppler and Color F low revealed mild mitral regurgitation. TRICUSPID VALVE Doppler and Color Flow revealed moderate tricuspid regurgitation. The pulmonary artery systolic press ure is estimated at 45 mmHg. There is mild pulmonary hypertension. PULMONIC VALVE The pulmonic valve is not well visualized but appears to open well. Doppler and Color Flow revealed m ild pulmonic valvular regurgitation. There is no pulmonic valvular stenosis by spectral Doppler. GREAT VESSELS The aortic root is normal in size. The ascending aorta is normal in size. The pulmonary artery is nor mal. The IVC is dilated and does not collapse with inspiration. PERICARDIAL EFFUSION Small left pleural effusion is noted. There is a trace circumferential pericardial effusion. Critical Notification Critical Value: No <Conclusion> Left ventricle systolic function is mildly impaired. The overall LV function has improved in comparis on to 01/10/2017 BRANDEN exam. The Ejection Fraction is now 40%. There is mild global hypokinesis of the left ventricle. There is a flattened septum consistent with r ight ventricle volume overload. Tissue Doppler imaging reveals moderate left ventricular diastolic dysfunction. The right ventricle is mildly dilated. Doppler and Color Flow revealed moderate tricuspid regurgitation. The pulmonary artery systolic press ure is estimated at 45 mmHg. There is mild pulmonary hypertension. The IVC is dilated and does not collapse with inspiration.
--- NOTE | 2017-01-11 12:22 | PDOC ---
PROGRESS NOTES Chief Complaint Chief Complaint new onset afib with RVR, acute diastolic CHF tobaccoism, she is motivated for cessation dyspnea with acute CHF exacerbation, likely systolic and diastolic anxiety d/o elevated transaminitis, possible 2/2 chf hyperthyroid, check Free t3 t4, start tapazole History of Present Illness History of Present Illness card consulted, will do emergent cardioversion today check tsh, lipid panel, echo waiting for procedure and lab result, will need meds for card issues dvt ppx, may need AC. admit >2nights, ICU ob for today labs tmr Vitals Vitals Vital Signs Date Time Temp Pulse Resp B/P (MAP) Pulse Ox O2 Delivery O2 Flow Rate FiO2 01/11/17 12:00 Room Air 01/11/17 12:00 98.1 115 18 113/72 (86) 99 98.1 01/10/17 16:35 2.0 Physical Exam General: Alert, Oriented X3, Cooperative, No acute distress Heart: Regular rate, No murmurs Lungs: Clear Abdomen: Normal bowel sounds, Soft, Other (some distention, ) Extremities: No clubbing, No cyanosis Skin: No breakdown Labs LABS Laboratory Tests Test 01/10/17 12:25 01/11/17 05:00 White Blood Count 4.4 x10^3/uL (4.0-11.0) 4.7 x10^3/uL (4.0-11.0) Red Blood Count 4.14 x10^6/uL (3.50-5.40) 4.01 x10^6/uL (3.50-5.40) Hemoglobin 11.4 g/dL (12.0-15.5) 11.1 g/dL (12.0-15.5) Hematocrit 34.6 % (36.0-47.0) 33.5 % (36.0-47.0) Mean Corpuscular Volume 84 fL (79-100) 84 fL (79-100) Mean Corpuscular Hemoglobin 28 pg (25-35) 28 pg (25-35) Mean Corpuscular Hemoglobin Concent 33 g/dL (31-37) 33 g/dL (31-37) Red Cell Distribution Width 14.6 % (11.5-14.5) 14.8 % (11.5-14.5) Platelet Count 150 x10^3/uL (140-400) 132 x10^3/uL (140-400) Neutrophils (%) (Auto) 27 % (31-73) 17 % (31-73) Lymphocytes (%) (Auto) 57 % (24-48) 69 % (24-48) Monocytes (%) (Auto) 14 % (0-9) 13 % (0-9) Eosinophils (%) (Auto) 1 % (0-3) 1 % (0-3) Basophils (%) (Auto) 0 % (0-3) 0 % (0-3) Neutrophils # (Auto) 1.2 x10^3uL (1.8-7.7) 0.8 x10^3uL (1.8-7.7) Lymphocytes # (Auto) 2.5 x10^3/uL (1.0-4.8) 3.3 x10^3/uL (1.0-4.8) Monocytes # (Auto) 0.6 x10^3/uL (0.0-1.1) 0.6 x10^3/uL (0.0-1.1) Eosinophils # (Auto) 0.0 x10^3/uL (0.0-0.7) 0.0 x10^3/uL (0.0-0.7) Basophils # (Auto) 0.0 x10^3/uL (0.0-0.2) 0.0 x10^3/uL (0.0-0.2) Sodium Level 140 mmol/L (136-145) 139 mmol/L (136-145) Potassium Level 3.9 mmol/L (3.5-5.1) 3.9 mmol/L (3.5-5.1) Chloride Level 108 mmol/L (98-107) 106 mmol/L (98-107) Carbon Dioxide Level 22 mmol/L (21-32) 20 mmol/L (21-32) Anion Gap 10 (6-14) 13 (6-14) Blood Urea Nitrogen 9 mg/dL (7-20) 11 mg/dL (7-20) Creatinine 0.6 mg/dL (0.6-1.0) 0.5 mg/dL (0.6-1.0) Estimated GFR (Cockcroft-Gault) 130.2 160.7 BUN/Creatinine Ratio 15 (6-20) 22 (6-20) Glucose Level 108 mg/dL (70-99) 102 mg/dL (70-99) Calcium Level 8.7 mg/dL (8.5-10.1) 9.2 mg/dL (8.5-10.1) Total Bilirubin 2.6 mg/dL (0.2-1.0) 2.7 mg/dL (0.2-1.0) Aspartate Amino Transf (AST/SGOT) 69 U/L (15-37) 56 U/L (15-37) Alanine Aminotransferase (ALT/SGPT) 40 U/L (14-59) 33 U/L (14-59) Alkaline Phosphatase 253 U/L (46-116) 230 U/L (46-116) Creatine Kinase 46 U/L (26-192) Creatine Kinase MB (Mass) < 0.5 ng/mL (0.0-3.6) Creatine Kinase MB Relative Index % (0-4) Troponin I Quantitative 0.017 ng/mL (0.000-0.055) LQ-Ezo-D-Type Natriuretic Peptide 2336 pg/mL (0-124) Total Protein 7.2 g/dL (6.4-8.2) 6.8 g/dL (6.4-8.2) Albumin 3.2 g/dL (3.4-5.0) 3.0 g/dL (3.4-5.0) Albumin/Globulin Ratio 0.8 (1.0-1.7) 0.8 (1.0-1.7) Segmented Neutrophils % 11 % (35-66) Band Neutrophils % 2 % (0-9) Lymphocytes % 75 % (24-48) Monocytes % 11 % (0-10) Eosinophils % 1 % (0-5) Platelet Estimate Adequate (ADEQUATE) Direct Bilirubin 1.7 mg/dL (0.0-0.2) Triglycerides Level 56 mg/dL (0-150) Cholesterol Level 78 mg/dL (0-200) LDL Cholesterol, Calculated 48 mg/dL (0-100) VLDL Cholesterol, Calculated 11 mg/dL (0-40) Non-HDL Cholesterol Calculated 59 mg/dL (0-129) HDL Cholesterol 19 mg/dL (40-60) Cholesterol/HDL Ratio 4.1 Thyroid Stimulating Hormone (TSH) < 0.007 uIU/mL (0.358-3.74) Review of Systems Review of Systems no n/v/d LE edema is better, abd distention has improved Assessment and Plan Assessmemt and Plan Problems Medical Problems: (1) Acute congestive heart failure Status: Acute Problems: Comment Review of Relevant I have reviewed the following items sloan (where applicable) has been applied. Labs Laboratory Tests Test 01/10/17 12:25 01/11/17 05:00 White Blood Count 4.4 x10^3/uL (4.0-11.0) 4.7 x10^3/uL (4.0-11.0) Red Blood Count 4.14 x10^6/uL (3.50-5.40) 4.01 x10^6/uL (3.50-5.40) Hemoglobin 11.4 g/dL (12.0-15.5) 11.1 g/dL (12.0-15.5) Hematocrit 34.6 % (36.0-47.0) 33.5 % (36.0-47.0) Mean Corpuscular Volume 84 fL (79-100) 84 fL (79-100) Mean Corpuscular Hemoglobin 28 pg (25-35) 28 pg (25-35) Mean Corpuscular Hemoglobin Concent 33 g/dL (31-37) 33 g/dL (31-37) Red Cell Distribution Width 14.6 % (11.5-14.5) 14.8 % (11.5-14.5) Platelet Count 150 x10^3/uL (140-400) 132 x10^3/uL (140-400) Neutrophils (%) (Auto) 27 % (31-73) 17 % (31-73) Lymphocytes (%) (Auto) 57 % (24-48) 69 % (24-48) Monocytes (%) (Auto) 14 % (0-9) 13 % (0-9) Eosinophils (%) (Auto) 1 % (0-3) 1 % (0-3) Basophils (%) (Auto) 0 % (0-3) 0 % (0-3) Neutrophils # (Auto) 1.2 x10^3uL (1.8-7.7) 0.8 x10^3uL (1.8-7.7) Lymphocytes # (Auto) 2.5 x10^3/uL (1.0-4.8) 3.3 x10^3/uL (1.0-4.8) Monocytes # (Auto) 0.6 x10^3/uL (0.0-1.1) 0.6 x10^3/uL (0.0-1.1) Eosinophils # (Auto) 0.0 x10^3/uL (0.0-0.7) 0.0 x10^3/uL (0.0-0.7) Basophils # (Auto) 0.0 x10^3/uL (0.0-0.2) 0.0 x10^3/uL (0.0-0.2) Sodium Level 140 mmol/L (136-145) 139 mmol/L (136-145) Potassium Level 3.9 mmol/L (3.5-5.1) 3.9 mmol/L (3.5-5.1) Chloride Level 108 mmol/L (98-107) 106 mmol/L (98-107) Carbon Dioxide Level 22 mmol/L (21-32) 20 mmol/L (21-32) Anion Gap 10 (6-14) 13 (6-14) Blood Urea Nitrogen 9 mg/dL (7-20) 11 mg/dL (7-20) Creatinine 0.6 mg/dL (0.6-1.0) 0.5 mg/dL (0.6-1.0) Estimated GFR (Cockcroft-Gault) 130.2 160.7 BUN/Creatinine Ratio 15 (6-20) 22 (6-20) Glucose Level 108 mg/dL (70-99) 102 mg/dL (70-99) Calcium Level 8.7 mg/dL (8.5-10.1) 9.2 mg/dL (8.5-10.1) Total Bilirubin 2.6 mg/dL (0.2-1.0) 2.7 mg/dL (0.2-1.0) Aspartate Amino Transf (AST/SGOT) 69 U/L (15-37) 56 U/L (15-37) Alanine Aminotransferase (ALT/SGPT) 40 U/L (14-59) 33 U/L (14-59) Alkaline Phosphatase 253 U/L (46-116) 230 U/L (46-116) Creatine Kinase 46 U/L (26-192) Creatine Kinase MB (Mass) < 0.5 ng/mL (0.0-3.6) Creatine Kinase MB Relative Index % (0-4) Troponin I Quantitative 0.017 ng/mL (0.000-0.055) SZ-Rjm-N-Type Natriuretic Peptide 2336 pg/mL (0-124) Total Protein 7.2 g/dL (6.4-8.2) 6.8 g/dL (6.4-8.2) Albumin 3.2 g/dL (3.4-5.0) 3.0 g/dL (3.4-5.0) Albumin/Globulin Ratio 0.8 (1.0-1.7) 0.8 (1.0-1.7) Segmented Neutrophils % 11 % (35-66) Band Neutrophils % 2 % (0-9) Lymphocytes % 75 % (24-48) Monocytes % 11 % (0-10) Eosinophils % 1 % (0-5) Platelet Estimate Adequate (ADEQUATE) Direct Bilirubin 1.7 mg/dL (0.0-0.2) Triglycerides Level 56 mg/dL (0-150) Cholesterol Level 78 mg/dL (0-200) LDL Cholesterol, Calculated 48 mg/dL (0-100) VLDL Cholesterol, Calculated 11 mg/dL (0-40) Non-HDL Cholesterol Calculated 59 mg/dL (0-129) HDL Cholesterol 19 mg/dL (40-60) Cholesterol/HDL Ratio 4.1 Thyroid Stimulating Hormone (TSH) < 0.007 uIU/mL (0.358-3.74) Laboratory Tests Test 01/10/17 12:25 01/11/17 05:00 White Blood Count 4.4 x10^3/uL (4.0-11.0) 4.7 x10^3/uL (4.0-11.0) Red Blood Count 4.14 x10^6/uL (3.50-5.40) 4.01 x10^6/uL (3.50-5.40) Hemoglobin 11.4 g/dL (12.0-15.5) 11.1 g/dL (12.0-15.5) Hematocrit 34.6 % (36.0-47.0) 33.5 % (36.0-47.0) Mean Corpuscular Volume 84 fL (79-100) 84 fL (79-100) Mean Corpuscular Hemoglobin 28 pg (25-35) 28 pg (25-35) Mean Corpuscular Hemoglobin Concent 33 g/dL (31-37) 33 g/dL (31-37) Red Cell Distribution Width 14.6 % (11.5-14.5) 14.8 % (11.5-14.5) Platelet Count 150 x10^3/uL (140-400) 132 x10^3/uL (140-400) Neutrophils (%) (Auto) 27 % (31-73) 17 % (31-73) Lymphocytes (%) (Auto) 57 % (24-48) 69 % (24-48) Monocytes (%) (Auto) 14 % (0-9) 13 % (0-9) Eosinophils (%) (Auto) 1 % (0-3) 1 % (0-3) Basophils (%) (Auto) 0 % (0-3) 0 % (0-3) Neutrophils # (Auto) 1.2 x10^3uL (1.8-7.7) 0.8 x10^3uL (1.8-7.7) Lymphocytes # (Auto) 2.5 x10^3/uL (1.0-4.8) 3.3 x10^3/uL (1.0-4.8) Monocytes # (Auto) 0.6 x10^3/uL (0.0-1.1) 0.6 x10^3/uL (0.0-1.1) Eosinophils # (Auto) 0.0 x10^3/uL (0.0-0.7) 0.0 x10^3/uL (0.0-0.7) Basophils # (Auto) 0.0 x10^3/uL (0.0-0.2) 0.0 x10^3/uL (0.0-0.2) Sodium Level 140 mmol/L (136-145) 139 mmol/L (136-145) Potassium Level 3.9 mmol/L (3.5-5.1) 3.9 mmol/L (3.5-5.1) Chloride Level 108 mmol/L (98-107) 106 mmol/L (98-107) Carbon Dioxide Level 22 mmol/L (21-32) 20 mmol/L (21-32) Anion Gap 10 (6-14) 13 (6-14) Blood Urea Nitrogen 9 mg/dL (7-20) 11 mg/dL (7-20) Creatinine 0.6 mg/dL (0.6-1.0) 0.5 mg/dL (0.6-1.0) Estimated GFR (Cockcroft-Gault) 130.2 160.7 BUN/Creatinine Ratio 15 (6-20) 22 (6-20) Glucose Level 108 mg/dL (70-99) 102 mg/dL (70-99) Calcium Level 8.7 mg/dL (8.5-10.1) 9.2 mg/dL (8.5-10.1) Total Bilirubin 2.6 mg/dL (0.2-1.0) 2.7 mg/dL (0.2-1.0) Aspartate Amino Transf (AST/SGOT) 69 U/L (15-37) 56 U/L (15-37) Alanine Aminotransferase (ALT/SGPT) 40 U/L (14-59) 33 U/L (14-59) Alkaline Phosphatase 253 U/L (46-116) 230 U/L (46-116) Creatine Kinase 46 U/L (26-192) Creatine Kinase MB (Mass) < 0.5 ng/mL (0.0-3.6) Creatine Kinase MB Relative Index % (0-4) Troponin I Quantitative 0.017 ng/mL (0.000-0.055) NT-Xln-O-Type Natriuretic Peptide 2336 pg/mL (0-124) Total Protein 7.2 g/dL (6.4-8.2) 6.8 g/dL (6.4-8.2) Albumin 3.2 g/dL (3.4-5.0) 3.0 g/dL (3.4-5.0) Albumin/Globulin Ratio 0.8 (1.0-1.7) 0.8 (1.0-1.7) Segmented Neutrophils % 11 % (35-66) Band Neutrophils % 2 % (0-9) Lymphocytes % 75 % (24-48) Monocytes % 11 % (0-10) Eosinophils % 1 % (0-5) Platelet Estimate Adequate (ADEQUATE) Direct Bilirubin 1.7 mg/dL (0.0-0.2) Triglycerides Level 56 mg/dL (0-150) Cholesterol Level 78 mg/dL (0-200) LDL Cholesterol, Calculated 48 mg/dL (0-100) VLDL Cholesterol, Calculated 11 mg/dL (0-40) Non-HDL Cholesterol Calculated 59 mg/dL (0-129) HDL Cholesterol 19 mg/dL (40-60) Cholesterol/HDL Ratio 4.1 Thyroid Stimulating Hormone (TSH) < 0.007 uIU/mL (0.358-3.74) Medications Current Medications Adenosine (Adenocard) 6 mg STK-MED ONCE IV ; Start 01/10/17 at 12:23; Stop at 12:24; Status DC Sodium Chloride 1,000 ml @ 100 mls/hr Q10H IV ; Start 01/10/17 at 13:00; Stop at 22:59; Status DC Diltiazem HCl (Cardizem) 25 mg STK-MED ONCE .ROUTE ; Start 01/10/17 at 12:52; Stop 01/10/17 at 12:53; Status DC Diltiazem HCl (Cardizem) 20 mg 1X ONCE IVP Last administered on 01/10/17 12:53 ; Start 01/10/17 at 13:15; Stop 01/10/17 at 13:16; Status DC Diltiazem HCl 125 mg/Dextrose 125 ml @ 0 mls/hr CONT PRN IV SEE I/O RECORD Last administered on 01/10/17 13:05; Start 01/10/17 at 13:00 Adenosine (Adenocard) 18 mg 1X ONCE IV Last administered on 01/10/17 13:02; Start 01/10/17 at 13:15; Stop 01/10/17 at 13:16; Status DC Enoxaparin Sodium (Lovenox 80mg Syringe) 80 mg 1X ONCE SQ Last administered on 01/10/17 13:50; Start 01/10/17 at 13:15; Stop 01/10/17 at 13:16; Status DC Lidocaine HCl (Viscous Lidocaine) 15 ml STK-MED ONCE .ROUTE ; Start 01/10/17 at 13:12; Stop 01/10/17 at 13:13; Status DC Benzocaine (Hurricaine One) 1 spray STK-MED ONCE .ROUTE ; Start 01/10/17 at 13:12 ; Stop 01/10/17 at 13:13; Status DC Lidocaine HCl (Xylocaine 2% Topical 30gm Tube) 30 lilli STK-MED ONCE TP ; Start at 13:12; Stop 01/10/17 at 13:13; Status DC Ondansetron HCl (Zofran) 4 mg PRN Q8HRS PRN IV NAUSEA/VOMITING; Start 01/10/17 at 13:30; Stop 01/11/17 at 13:29 Sodium Chloride 1,000 ml @ 50 mls/hr Q20H IV ; Start 01/10/17 at 13:24; Stop 01/11/17 at 13:23 Acetaminophen (Tylenol) 650 mg PRN Q4HRS PRN PO FEVER; Start 01/10/17 at 13:30; Stop 01/11/17 at 13:29 Lidocaine HCl (Lidocaine HCl 2% Abboject) 100 mg STK-MED ONCE .ROUTE ; Start 01/10/17 at 13:35; Stop 01/10/17 at 13:36; Status DC Propofol 20 ml @ As Directed STK-MED ONCE IV ; Start 01/10/17 at 13:36; Stop 01/10 at 13:37; Status DC Propofol 20 ml @ As Directed STK-MED ONCE IV ; Start 01/10/17 at 13:40; Stop 01/10 at 13:41; Status DC Amiodarone HCl (Cordarone) 150 mg STK-MED ONCE .ROUTE ; Start 01/10/17 at 13:53; Stop 01/10/17 at 13:54; Status DC Amiodarone HCl (Cordarone) 150 mg 1X ONCE IVP ; Start 01/10/17 at 13:55; Stop at 14:07; Status DC Amiodarone HCl (Cordarone) 150 mg 1X ONCE IVP Last administered on 01/10/17t 14 :20; Start 01/10/17 at 14:15; Stop 01/10/17 at 14:16; Status DC Acetaminophen (Tylenol) 650 mg PRN Q6HRS PRN PO FEVER; Start 01/10/17 at 14:30 Ondansetron HCl (Zofran) 4 mg PRN Q6HRS PRN IV NAUSEA/VOMITING; Start 01/10/17 at 14:30 Morphine Sulfate 2 mg PRN Q2HR PRN IV PAIN; Start 01/10/17 at 14:30 Tramadol HCl (Ultram) 50 mg PRN Q6HRS PRN PO PAIN; Start 01/10/17 at 14:30 Hydralazine HCl (Apresoline) 10 mg PRN Q4HRS PRN IVP ELEVATED BP, SEE COMMENTS ; Start 01/10/17 at 14:30 Docusate Sodium (Colace) 100 mg PRN DAILY PRN PO CONSTIPATION; Start 01/10/17 at 14:30 Enoxaparin Sodium (Lovenox 40mg Syringe) 40 mg Q24H SQ ; Start 01/10/17 at 15:00 ; Stop 01/10/17 at 15:47; Status DC Amiodarone HCl 150 mg/Dextrose 103 ml @ 618 mls/hr 1X ONCE IV ; Start 01/10/17 at 15:00; Stop 01/10/17 at 15:09; Status DC Amiodarone HCl 900 mg/Dextrose 518 ml @ 0 mls/hr CONT PRN IV SEE I/O RECORD Last administered on 01/10/17 15:55; Start 01/10/17 at 15:00; Stop 01/10/17 at 15: 56; Status DC Amiodarone HCl 900 mg/Dextrose 518 ml @ 0 mls/hr CONT PRN IV SEE I/O RECORD; Start 01/10/17 at 15:00; Stop 01/10/17 at 15:03; Status DC Digoxin (Lanoxin) 500 mcg 1X ONCE IV Last administered on 01/10/17 15:49; Start 01/10/17 at 15:45; Stop 01/10/17 at 15:46; Status DC Enoxaparin Sodium (Lovenox 80mg Syringe) 80 mg BID SQ Last administered on 09:12; Start 01/10/17 at 21:00 Amiodarone HCl 900 mg/Dextrose 518 ml @ 0 mls/hr CONT PRN IV SEE I/O RECORD Last administered on 01/11/17 07:32; Start 01/10/17 at 16:00; Stop 01/11/17 at 07: 33; Status DC Digoxin (Lanoxin) 250 mcg Q6H IV Last administered on 01/11/17 04:13; Start 01/10/17 at 22:00; Stop 01/11/17 at 04:01; Status DC Nicotine (Nicoderm Cq 21mg) 1 patch DAILY TD ; Start 01/10/17 at 18:00 Alprazolam (Xanax) 0.25 mg PRN Q8HRS PRN PO ANXIETY / AGITATION Last administered on 01/10/17 21:57; Start 01/10/17 at 17:30 Lorazepam (Ativan) 2 mg PRN Q2HR PRN PO For CIWA 8-14; Start 01/10/17 at 17:30 Throat Lozenges (Chloraseptic) 1 spray PRN Q2HR PRN PO SORE THROAT Last administered on 01/10/17 21:58; Start 01/10/17 at 20:00 Info (Anti-Coagulation Monitoring By Pharmacy) 1 each PRN DAILY PRN MC SEE COMMENTS Last administered on 01/11/17 07:50; Start 01/11/17 at 08:00 Furosemide (Lasix) 40 mg 1X ONCE IVP Last administered on 01/11/17 09:14; Start 01/11/17 at 08:30; Stop 01/11/17 at 08:32; Status DC Digoxin (Lanoxin) 125 mcg 1X ONCE PO Last administered on 01/11/17 09:12; Start 01/11/17 at 08:30; Stop 01/11/17 at 08:32; Status DC Vitals/I & O Vital Sign - Last 24 Hours 01/10/17 01/10/17 01/10/17 01/10/17 12:24 12:30 12:45 12:53 Temp 98.9 98.9 Pulse 240 242 242 240 Resp 22 B/P (MAP) 137/79 (98) 180/82 (114) 148/74 (98) 148/74 Pulse Ox 99 O2 Delivery Room Air 01/10/17 01/10/17 01/10/17 01/10/17 12:56 12:59 13:00 13:19 Pulse 178 B/P (MAP) 160/80 (106) 139/78 (98) 139/78 (98) 147/98 (114) Pulse Ox 99 01/10/17 01/10/17 01/10/17 01/10/17 13:39 13:45 14:00 14:00 Temp 98.6 98.9 98.6 98.9 Pulse 196 218 190 Resp 12 18 B/P (MAP) 147/98 (114) 144/85 159/104 Pulse Ox 99 99 O2 Delivery Nasal Cannula Nasal Cannula Nasal Cannula O2 Flow Rate 2 2 2 01/10/17 01/10/17 01/10/17 01/10/17 14:15 14:20 14:45 15:00 Temp 98.9 98.9 98.9 98.9 Pulse 167 68 160 160 Resp 12 20 B/P (MAP) 164/99 162/100 116/78 (91) 116/76 Pulse Ox 99 98 O2 Delivery Nasal Cannula Nasal Cannula O2 Flow Rate 2 2.0 01/10/17 01/10/17 01/10/17 01/10/17 15:00 15:15 15:49 16:08 Pulse 146 148 157 Resp 18 22 B/P (MAP) 114/66 (82) 110/76 (87) 116/76 Pulse Ox 98 99 O2 Delivery Nasal Cannula Nasal Cannula Nasal Cannula O2 Flow Rate 2.0 2.0 2.0 01/10/17 01/10/17 01/10/17 01/10/17 16:35 17:55 18:54 19:40 Pulse 144 157 145 133 Resp 20 18 20 22 B/P (MAP) 127/69 (88) 135/51 (79) 121/75 (90) 138/71 (93) Pulse Ox 100 99 99 98 O2 Delivery Nasal Cannula Room Air Room Air Room Air O2 Flow Rate 2.0 01/10/17 01/10/17 01/10/17 01/10/17 20:00 20:40 21:42 21:58 Temp 98.8 98.8 Pulse 141 136 136 Resp 18 18 B/P (MAP) 113/70 (84) 113/70 (84) 113/70 Pulse Ox 96 99 O2 Delivery Room Air Room Air Room Air 01/10/17 01/10/17 01/10/17 01/11/17 22:40 23:45 23:54 00:35 Pulse 117 124 130 B/P (MAP) 135/77 (96) 134/68 (90) 119/76 (90) Pulse Ox 99 98 97 O2 Delivery Room Air Room Air Room Air Room Air 01/11/17 01/11/17 01/11/17 01/11/17 01:46 03:00 04:00 04:00 Temp 98.4 98.4 Pulse 126 124 120 B/P (MAP) 127/72 (90) 140/75 (96) 117/74 (88) Pulse Ox 98 99 98 O2 Delivery Room Air Room Air Room Air Room Air 01/11/17 01/11/17 01/11/17 01/11/17 04:13 05:00 06:25 07:04 Pulse 115 107 124 119 B/P (MAP) 117/74 126/69 (88) 106/72 (83) 122/76 (91) Pulse Ox 98 98 99 O2 Delivery Room Air Room Air Room Air 01/11/17 01/11/17 01/11/17 01/11/17 08:00 08:00 09:00 09:12 Temp 98.6 98.6 Pulse 118 120 126 Resp 20 20 B/P (MAP) 119/60 (79) 124/70 (88) 124/70 Pulse Ox 96 98 O2 Delivery Room Air Room Air Room Air 01/11/17 01/11/17 01/11/17 01/11/17 10:00 11:00 12:00 12:00 Temp 98.1 98.1 Pulse 122 112 115 Resp 20 20 18 B/P (MAP) 135/76 (95) 137/66 (89) 113/72 (86) Pulse Ox 94 96 99 O2 Delivery Room Air Room Air Room Air Room Air Intake and Output 01/10/17 01/10/17 01/11/17 15:00 23:00 07:00 Intake Total 1005 ml 1400 ml 180 ml Output Total 300 ml 350 ml Balance 1005 ml 1100 ml -170 ml DESHAUN COLORADO MD Jan 11, 2017 12:22
--- NOTE | 2017-01-11 12:45 | PDOC ---
JOSE HENSLEY ESTHETICIAN 01/11/17 1245: CARDIO Progress Notes Date and Time Date of Service 01/11/17 Time of Evaluation 1145 Subjective Subjective: No Chest Pain, No shortness of breath, No Palpitations Vitals Vitals Vital Signs Date Time Temp Pulse Resp B/P (MAP) Pulse Ox O2 Delivery O2 Flow Rate FiO2 01/11/17 12:00 Room Air 01/11/17 12:00 98.1 115 18 113/72 (86) 99 98.1 01/10/17 16:35 2.0 Weight Weight [ ] Input and Output Intake and Output Intake and Output 01/11/17 07:00 Intake Total 2585 ml Output Total 650 ml Balance 1935 ml Intake Oral 1580 ml IV Total 1005 ml Output Urine Total 650 ml # Voids 1 Laboratory Labs Laboratory Tests Test 01/10/17 12:25 01/11/17 05:00 White Blood Count 4.4 x10^3/uL (4.0-11.0) 4.7 x10^3/uL (4.0-11.0) Red Blood Count 4.14 x10^6/uL (3.50-5.40) 4.01 x10^6/uL (3.50-5.40) Hemoglobin 11.4 g/dL (12.0-15.5) 11.1 g/dL (12.0-15.5) Hematocrit 34.6 % (36.0-47.0) 33.5 % (36.0-47.0) Mean Corpuscular Volume 84 fL (79-100) 84 fL (79-100) Mean Corpuscular Hemoglobin 28 pg (25-35) 28 pg (25-35) Mean Corpuscular Hemoglobin Concent 33 g/dL (31-37) 33 g/dL (31-37) Red Cell Distribution Width 14.6 % (11.5-14.5) 14.8 % (11.5-14.5) Platelet Count 150 x10^3/uL (140-400) 132 x10^3/uL (140-400) Neutrophils (%) (Auto) 27 % (31-73) 17 % (31-73) Lymphocytes (%) (Auto) 57 % (24-48) 69 % (24-48) Monocytes (%) (Auto) 14 % (0-9) 13 % (0-9) Eosinophils (%) (Auto) 1 % (0-3) 1 % (0-3) Basophils (%) (Auto) 0 % (0-3) 0 % (0-3) Neutrophils # (Auto) 1.2 x10^3uL (1.8-7.7) 0.8 x10^3uL (1.8-7.7) Lymphocytes # (Auto) 2.5 x10^3/uL (1.0-4.8) 3.3 x10^3/uL (1.0-4.8) Monocytes # (Auto) 0.6 x10^3/uL (0.0-1.1) 0.6 x10^3/uL (0.0-1.1) Eosinophils # (Auto) 0.0 x10^3/uL (0.0-0.7) 0.0 x10^3/uL (0.0-0.7) Basophils # (Auto) 0.0 x10^3/uL (0.0-0.2) 0.0 x10^3/uL (0.0-0.2) Sodium Level 140 mmol/L (136-145) 139 mmol/L (136-145) Potassium Level 3.9 mmol/L (3.5-5.1) 3.9 mmol/L (3.5-5.1) Chloride Level 108 mmol/L (98-107) 106 mmol/L (98-107) Carbon Dioxide Level 22 mmol/L (21-32) 20 mmol/L (21-32) Anion Gap 10 (6-14) 13 (6-14) Blood Urea Nitrogen 9 mg/dL (7-20) 11 mg/dL (7-20) Creatinine 0.6 mg/dL (0.6-1.0) 0.5 mg/dL (0.6-1.0) Estimated GFR (Cockcroft-Gault) 130.2 160.7 BUN/Creatinine Ratio 15 (6-20) 22 (6-20) Glucose Level 108 mg/dL (70-99) 102 mg/dL (70-99) Calcium Level 8.7 mg/dL (8.5-10.1) 9.2 mg/dL (8.5-10.1) Total Bilirubin 2.6 mg/dL (0.2-1.0) 2.7 mg/dL (0.2-1.0) Aspartate Amino Transf (AST/SGOT) 69 U/L (15-37) 56 U/L (15-37) Alanine Aminotransferase (ALT/SGPT) 40 U/L (14-59) 33 U/L (14-59) Alkaline Phosphatase 253 U/L (46-116) 230 U/L (46-116) Creatine Kinase 46 U/L (26-192) Creatine Kinase MB (Mass) < 0.5 ng/mL (0.0-3.6) Creatine Kinase MB Relative Index % (0-4) Troponin I Quantitative 0.017 ng/mL (0.000-0.055) OI-Hoq-D-Type Natriuretic Peptide 2336 pg/mL (0-124) Total Protein 7.2 g/dL (6.4-8.2) 6.8 g/dL (6.4-8.2) Albumin 3.2 g/dL (3.4-5.0) 3.0 g/dL (3.4-5.0) Albumin/Globulin Ratio 0.8 (1.0-1.7) 0.8 (1.0-1.7) Segmented Neutrophils % 11 % (35-66) Band Neutrophils % 2 % (0-9) Lymphocytes % 75 % (24-48) Monocytes % 11 % (0-10) Eosinophils % 1 % (0-5) Platelet Estimate Adequate (ADEQUATE) Direct Bilirubin 1.7 mg/dL (0.0-0.2) Triglycerides Level 56 mg/dL (0-150) Cholesterol Level 78 mg/dL (0-200) LDL Cholesterol, Calculated 48 mg/dL (0-100) VLDL Cholesterol, Calculated 11 mg/dL (0-40) Non-HDL Cholesterol Calculated 59 mg/dL (0-129) HDL Cholesterol 19 mg/dL (40-60) Cholesterol/HDL Ratio 4.1 Thyroid Stimulating Hormone (TSH) < 0.007 uIU/mL (0.358-3.74) Physical Exam HEENT: Neck Supple W Full Motion Chest: Symmetric LUNGS: Clear to Auscultation Heart: irregularly irregular, other (difficulty to appreciate heart tones due to tachycardia ) Abdomen: Other (distended, ascites) Extremities: 2+ Dorsalis Pedis, Other (trace pedal edema ) Neurology: alert, oriented, follow commands Assessment Assessment 1. AFIB with RVR 2. Acute on chronic systolic heart failure; LVEF now 40% per TTE 3. Cardiomyopathy 4. Hyperthyroidism; TSH <0.007 5. Alcohol abuse 6. Elevated LFT's Recommendations Continue IV diuresis Hyperthyroidism likely contributor to AFIB with RVR Stop Amiodarone given above. Will initiate Multaq and add propranolol for rate/ rhythm control. Continue Dig. Continue anticoagulation with Lovenox. Convert to NOAC prior to discharge Methimazole as per PCP. Monitor for s/s of withdrawal Continue supportive care. Consider for ischemic workup with stable although suspicion for ICM low Consider outpatient cardioversion following thyroid treatment. LOPEZ GONZALEZ MD 01/12/17 1016: CARDIO Progress Notes Plan Plan Late entry for 01/11/2017. Pt. seen and examined. Agree with above GRANULATOR note. Will stop digoxin Continue propranolol and multaq Will likely transition to eliquis upon DC. MPI on saturday when HR better. Will follow along. Anticipate DC on saturday evening. JOSE HENSLEY APRN Jan 11, 2017 12:45 LOPEZ GONZALEZ MD Jan 12, 2017 10:16
[2017-01-11] MEDS: DRONEDARONE HCL 400 MG TABLET PO SCH ×2 (12:51→17:00)
[2017-01-11] MEDS: PROPRANOLOL 40 MG TABLET. PO SCH ×2 (13:08→18:03)
[2017-01-11] MEDS: methIMAzole 10 MG TABLET PO SCH ×2 (18:12→20:17)
[2017-01-11] MEDS ORDERED: DRONEDARONE HCL 400 MG TABLET PO ONE (21:00)
[2017-01-12] VITALS (12 sets, daily range): BP systolic 105–122; BP diastolic 50–80
[2017-01-12] MEDS ORDERED: IBUP-1060 PO (00:26)
[2017-01-12] MEDS ORDERED: LEVO1TAB33 PO (00:26)
[2017-01-12] MEDS ORDERED: METH-364 PO (00:26)
[2017-01-12 05:23] LABS: FREE T4 7.33 ng/dL (0.76-1.46)
[2017-01-12] MEDS: DRONEDARONE HCL 400 MG TABLET PO SCH ×2 (08:14→17:18)
[2017-01-12] MEDS: PROPRANOLOL 40 MG TABLET. PO SCH ×2 (08:44→20:44)
[2017-01-12] MEDS: methIMAzole 10 MG TABLET PO SCH ×3 (08:44→20:45)
[2017-01-12] MEDS: DIGOXIN 125 MCG TABLET. PO SCH (08:45)
[2017-01-12] MEDS: NICOTINE 21MG PATCH. TD SCH (08:46)
--- NOTE | 2017-01-12 10:10 | PDOC ---
CARDIO Progress Notes Date and Time Date of Service 01/12/17 Time of Evaluation 0945 Subjective Subjective: No Chest Pain, No shortness of breath, No Palpitations, Other ( feeling much better today ) Vitals Vitals Vital Signs Date Time Temp Pulse Resp B/P (MAP) Pulse Ox O2 Delivery O2 Flow Rate FiO2 01/12/17 08:45 108 105/50 01/12/17 08:00 98.6 18 Room Air 98.6 01/12/17 06:00 95 Weight Weight [ ] Input and Output Intake and Output Intake and Output 01/12/17 07:00 Intake Total 1936 ml Output Total 1851 ml Balance 85 ml Intake Oral 1660 ml IV Total 276 ml Output Urine Total 1850 ml Urine/Stool Mix 1 ml # Bowel Movements 1 Laboratory Labs Laboratory Tests Test 01/11/17 11:50 01/12/17 04:00 Nasal Screen MRSA (PCR) Negative (Negative) Free Thyroxine 7.33 ng/dL (0.76-1.46) Free Triiodothyronine (T3) pg/mL 19.38 pg/mL (2.18-3.98) Physical Exam HEENT: Neck Supple W Full Motion Chest: Symmetric LUNGS: Clear to Auscultation Heart: irregularly irregular (tele: AFIB with controlled ventricular rate), other Abdomen: Other (distended, ascites) Extremities: 2+ Dorsalis Pedis, Other (trace pedal edema ) Neurology: alert, oriented, follow commands Assessment Assessment 1. AFIB with RVR; hyperthyroidism likely contributor, ventricular rate much better controlled with medication changes 2. Acute on chronic systolic heart failure; improved with diuresis and rate control. 3. Cardiomyopathy; LVEF initially 10%, now 40% per TTE 4. Hyperthyroidism; TSH <0.007. Methimazole initiated. Per PCP 5. Alcohol abuse 6. Elevated LFT's Recommendations Continue with Multaq, Digoxin, and propranolol for rate control. Anticoagulated with Lovenox. Convert to NOAC prior to discharge Start low-dose diuretic and BELINDA for optimization Monitor for s/s of withdrawal Continue supportive care. Consider outpatient cardioversion following thyroid treatment. JOSE HENSLEY APRN Jan 12, 2017 10:10
[2017-01-12] MEDS ORDERED: PROP40TA PO (10:25)
[2017-01-12] MEDS ORDERED: DIGO125T PO (10:25)
[2017-01-12] MEDS ORDERED: METH-184 PO (10:25)
[2017-01-12] MEDS ORDERED: DRON400T PO (10:25)
[2017-01-12] MEDS ORDERED: APIX5TAB PO (10:26)
--- NOTE | 2017-01-12 12:31 | PDOC ---
PROGRESS NOTES Subjective Subjective The patient is feeling better. Objective Objective Vital Signs Date Time Temp Pulse Resp B/P (MAP) Pulse Ox O2 Delivery O2 Flow Rate FiO2 01/12/17 11:00 98.4 87 16 114/68 (83) 99 Room Air 98.4 01/10/17 16:35 2.0 Intake and Output 01/12/17 07:00 Intake Total 1936 ml Output Total 1851 ml Balance 85 ml Intake Oral 1660 ml IV Total 276 ml Output Urine Total 1850 ml Urine/Stool Mix 1 ml # Bowel Movements 1 Physical Exam Abdomen: Normal bowel sounds Heart: Other (is irregularly irregular) General: mild distress Lungs: Other (slightly decreased breath sounds) Assessment Assessment Problems Medical Problems: (1) Acute congestive heart failure Status: Acute 1. AFIB with RVR; hyperthyroidism likely contributor, ventricular rate much better controlled with medication changes 2. Acute on chronic systolic heart failure; improved with diuresis and rate control. 3. Cardiomyopathy; LVEF initially 10%, now 40% per TTE 4. Hyperthyroidism; TSH <0.007. Methimazole initiated. Per PCP 5. Alcohol abuse 6. Elevated LFT's Continue with Multaq, Digoxin, and propranolol for rate control. Anticoagulated with Lovenox. Convert to NOAC prior to discharge Start low-dose diuretic and BELINDA for optimization Consider outpatient cardioversion following thyroid treatment. Comment Review of Relevant I have reviewed the following items sloan (where applicable) has been applied. Labs Laboratory Tests Test 01/11/17 05:00 01/11/17 11:50 01/12/17 04:00 White Blood Count 4.7 x10^3/uL (4.0-11.0) Red Blood Count 4.01 x10^6/uL (3.50-5.40) Hemoglobin 11.1 g/dL (12.0-15.5) Hematocrit 33.5 % (36.0-47.0) Mean Corpuscular Volume 84 fL (79-100) Mean Corpuscular Hemoglobin 28 pg (25-35) Mean Corpuscular Hemoglobin Concent 33 g/dL (31-37) Red Cell Distribution Width 14.8 % (11.5-14.5) Platelet Count 132 x10^3/uL (140-400) Neutrophils (%) (Auto) 17 % (31-73) Lymphocytes (%) (Auto) 69 % (24-48) Monocytes (%) (Auto) 13 % (0-9) Eosinophils (%) (Auto) 1 % (0-3) Basophils (%) (Auto) 0 % (0-3) Neutrophils # (Auto) 0.8 x10^3uL (1.8-7.7) Lymphocytes # (Auto) 3.3 x10^3/uL (1.0-4.8) Monocytes # (Auto) 0.6 x10^3/uL (0.0-1.1) Eosinophils # (Auto) 0.0 x10^3/uL (0.0-0.7) Basophils # (Auto) 0.0 x10^3/uL (0.0-0.2) Segmented Neutrophils % 11 % (35-66) Band Neutrophils % 2 % (0-9) Lymphocytes % 75 % (24-48) Monocytes % 11 % (0-10) Eosinophils % 1 % (0-5) Platelet Estimate Adequate (ADEQUATE) Sodium Level 139 mmol/L (136-145) Potassium Level 3.9 mmol/L (3.5-5.1) Chloride Level 106 mmol/L (98-107) Carbon Dioxide Level 20 mmol/L (21-32) Anion Gap 13 (6-14) Blood Urea Nitrogen 11 mg/dL (7-20) Creatinine 0.5 mg/dL (0.6-1.0) Estimated GFR (Cockcroft-Gault) 160.7 BUN/Creatinine Ratio 22 (6-20) Glucose Level 102 mg/dL (70-99) Calcium Level 9.2 mg/dL (8.5-10.1) Total Bilirubin 2.7 mg/dL (0.2-1.0) Direct Bilirubin 1.7 mg/dL (0.0-0.2) Aspartate Amino Transf (AST/SGOT) 56 U/L (15-37) Alanine Aminotransferase (ALT/SGPT) 33 U/L (14-59) Alkaline Phosphatase 230 U/L (46-116) Total Protein 6.8 g/dL (6.4-8.2) Albumin 3.0 g/dL (3.4-5.0) Albumin/Globulin Ratio 0.8 (1.0-1.7) Triglycerides Level 56 mg/dL (0-150) Cholesterol Level 78 mg/dL (0-200) LDL Cholesterol, Calculated 48 mg/dL (0-100) VLDL Cholesterol, Calculated 11 mg/dL (0-40) Non-HDL Cholesterol Calculated 59 mg/dL (0-129) HDL Cholesterol 19 mg/dL (40-60) Cholesterol/HDL Ratio 4.1 Thyroid Stimulating Hormone (TSH) < 0.007 uIU/mL (0.358-3.74) Nasal Screen MRSA (PCR) Negative (Negative) Free Thyroxine 7.33 ng/dL (0.76-1.46) Free Triiodothyronine (T3) pg/mL 19.38 pg/mL (2.18-3.98) Laboratory Tests Test 01/12/17 04:00 Free Thyroxine 7.33 ng/dL (0.76-1.46) Free Triiodothyronine (T3) pg/mL 19.38 pg/mL (2.18-3.98) Medications Current Medications Adenosine (Adenocard) 6 mg STK-MED ONCE IV ; Start 01/10/17 at 12:23; Stop at 12:24; Status DC Sodium Chloride 1,000 ml @ 100 mls/hr Q10H IV ; Start 01/10/17 at 13:00; Stop at 22:59; Status DC Diltiazem HCl (Cardizem) 25 mg STK-MED ONCE .ROUTE ; Start 01/10/17 at 12:52; Stop 01/10/17 at 12:53; Status DC Diltiazem HCl (Cardizem) 20 mg 1X ONCE IVP Last administered on 01/10/17 12:53 ; Start 01/10/17 at 13:15; Stop 01/10/17 at 13:16; Status DC Diltiazem HCl 125 mg/Dextrose 125 ml @ 0 mls/hr CONT PRN IV SEE I/O RECORD Last administered on 01/10/17 13:05; Start 01/10/17 at 13:00; Stop 01/11/17 at 12: 37; Status DC Adenosine (Adenocard) 18 mg 1X ONCE IV Last administered on 01/10/17 13:02; Start 01/10/17 at 13:15; Stop 01/10/17 at 13:16; Status DC Enoxaparin Sodium (Lovenox 80mg Syringe) 80 mg 1X ONCE SQ Last administered on 01/10/17t 13:50; Start 01/10/17 at 13:15; Stop 01/10/17 at 13:16; Status DC Lidocaine HCl (Viscous Lidocaine) 15 ml STK-MED ONCE .ROUTE ; Start 01/10/17 at 13:12; Stop 01/10/17 at 13:13; Status DC Benzocaine (Hurricaine One) 1 spray STK-MED ONCE .ROUTE ; Start 01/10/17 at 13:12 ; Stop 01/10/17 at 13:13; Status DC Lidocaine HCl (Xylocaine 2% Topical 30gm Tube) 30 lilli STK-MED ONCE TP ; Start at 13:12; Stop 01/10/17 at 13:13; Status DC Ondansetron HCl (Zofran) 4 mg PRN Q8HRS PRN IV NAUSEA/VOMITING; Start 01/10/17 at 13:30; Stop 01/11/17 at 13:29; Status DC Sodium Chloride 1,000 ml @ 50 mls/hr Q20H IV ; Start 01/10/17 at 13:24; Stop 01/11/17 at 13:23; Status DC Acetaminophen (Tylenol) 650 mg PRN Q4HRS PRN PO FEVER; Start 01/10/17 at 13:30; Stop 01/11/17 at 12:51; Status DC Lidocaine HCl (Lidocaine HCl 2% Abboject) 100 mg STK-MED ONCE .ROUTE ; Start 01/10/17 at 13:35; Stop 01/10/17 at 13:36; Status DC Propofol 20 ml @ As Directed STK-MED ONCE IV ; Start 01/10/17 at 13:36; Stop 01/10 at 13:37; Status DC Propofol 20 ml @ As Directed STK-MED ONCE IV ; Start 01/10/17 at 13:40; Stop 01/10 at 13:41; Status DC Amiodarone HCl (Cordarone) 150 mg STK-MED ONCE .ROUTE ; Start 01/10/17 at 13:53; Stop 01/10/17 at 13:54; Status DC Amiodarone HCl (Cordarone) 150 mg 1X ONCE IVP ; Start 01/10/17 at 13:55; Stop at 14:07; Status DC Amiodarone HCl (Cordarone) 150 mg 1X ONCE IVP Last administered on 01/10/17 14 :20; Start 01/10/17 at 14:15; Stop 01/10/17 at 14:16; Status DC Acetaminophen (Tylenol) 650 mg PRN Q6HRS PRN PO FEVER; Start 01/10/17 at 14:30 Ondansetron HCl (Zofran) 4 mg PRN Q6HRS PRN IV NAUSEA/VOMITING; Start 01/10/17 at 14:30 Morphine Sulfate 2 mg PRN Q2HR PRN IV PAIN; Start 01/10/17 at 14:30 Tramadol HCl (Ultram) 50 mg PRN Q6HRS PRN PO PAIN; Start 01/10/17 at 14:30 Hydralazine HCl (Apresoline) 10 mg PRN Q4HRS PRN IVP ELEVATED BP, SEE COMMENTS ; Start 01/10/17 at 14:30 Docusate Sodium (Colace) 100 mg PRN DAILY PRN PO CONSTIPATION; Start 01/10/17 at 14:30 Enoxaparin Sodium (Lovenox 40mg Syringe) 40 mg Q24H SQ ; Start 01/10/17 at 15:00 ; Stop 01/10/17 at 15:47; Status DC Amiodarone HCl 150 mg/Dextrose 103 ml @ 618 mls/hr 1X ONCE IV ; Start 01/10/17 at 15:00; Stop 01/11/17 at 12:37; Status DC Amiodarone HCl 900 mg/Dextrose 518 ml @ 0 mls/hr CONT PRN IV SEE I/O RECORD Last administered on 01/10/17 15:55; Start 01/10/17 at 15:00; Stop 01/10/17 at 15: 56; Status DC Amiodarone HCl 900 mg/Dextrose 518 ml @ 0 mls/hr CONT PRN IV SEE I/O RECORD; Start 01/10/17 at 15:00; Stop 01/10/17 at 15:03; Status DC Digoxin (Lanoxin) 500 mcg 1X ONCE IV Last administered on 01/10/17 15:49; Start 01/10/17 at 15:45; Stop 01/10/17 at 15:46; Status DC Enoxaparin Sodium (Lovenox 80mg Syringe) 80 mg BID SQ Last administered on 08:45; Start 01/10/17 at 21:00 Amiodarone HCl 900 mg/Dextrose 518 ml @ 0 mls/hr CONT PRN IV SEE I/O RECORD Last administered on 01/11/17 07:32; Start 01/10/17 at 16:00; Stop 01/11/17 at 07: 33; Status DC Digoxin (Lanoxin) 250 mcg Q6H IV Last administered on 01/11/17 04:13; Start 01/10/17 at 22:00; Stop 01/11/17 at 04:01; Status DC Nicotine (Nicoderm Cq 21mg) 1 patch DAILY TD ; Start 01/10/17 at 18:00 Alprazolam (Xanax) 0.25 mg PRN Q8HRS PRN PO ANXIETY / AGITATION Last administered on 01/10/17 21:57; Start 01/10/17 at 17:30 Lorazepam (Ativan) 2 mg PRN Q2HR PRN PO For CIWA 8-14; Start 01/10/17 at 17:30 Throat Lozenges (Chloraseptic) 1 spray PRN Q2HR PRN PO SORE THROAT Last administered on 01/10/17 21:58; Start 01/10/17 at 20:00 Info (Anti-Coagulation Monitoring By Pharmacy) 1 each PRN DAILY PRN MC SEE COMMENTS Last administered on 01/11/17 07:50; Start 01/11/17 at 08:00 Furosemide (Lasix) 40 mg 1X ONCE IVP Last administered on 01/11/17 09:14; Start 01/11/17 at 08:30; Stop 01/11/17 at 08:32; Status DC Digoxin (Lanoxin) 125 mcg 1X ONCE PO Last administered on 01/11/17 09:12; Start 01/11/17 at 08:30; Stop 01/11/17 at 08:32; Status DC Dronedarone (Multaq) 400 mg BIDWMEALS PO Last administered on 01/12/17 08:14; Start 01/11/17 at 12:30 Propranolol HCl (Inderal) 40 mg BID PO Last administered on 01/12/17 08:44; Start 01/11/17 at 13:00 Digoxin (Lanoxin) 125 mcg DAILY PO Last administered on 01/12/17 08:45; Start 01/12/17 at 09:00 Methimazole (Tapazole) 10 mg TID PO Last administered on 01/12/17 08:44; Start 01/11/17 at 18:00; Stop 01/12/17 at 10:08; Status DC Dronedarone (Multaq) 400 mg 1X ONCE PO Last administered on 01/11/17 20:17; Start 01/11/17 at 21:00; Stop 01/11/17 at 21:01; Status DC Methimazole (Tapazole) 15 mg TID PO ; Start 01/12/17 at 14:00 Furosemide (Lasix) 40 mg DAILY PO ; Start 01/12/17 at 11:00 Lisinopril (Prinivil) 2.5 mg DAILY PO ; Start 01/12/17 at 11:00 Active Scripts Active Eliquis (Apixaban) 5 Mg Tablet 5 Mg PO BID Propranolol Hcl 40 Mg Tablet 40 Mg PO BID Multaq (Dronedarone Hcl) 400 Mg Tablet 400 Mg PO BIDWMEALS Digoxin 125 Mcg Tablet 125 Mcg PO DAILY Tapazole (Methimazole) 10 Mg Tablet 15 Mg PO TID Reported Ibuprofen 800 Mg Tablet 800 Mg PO PRN Q6HRS PRN Levora-28 (Levonorgestrel-Eth Estradiol) 1 Each Tablet 1 Tab PO DAILY Methimazole 10 Mg Tablet 20 Mg PO DAILY Vitals/I & O Vital Sign - Last 24 Hours 01/11/17 01/11/17 01/11/17 01/11/17 12:51 13:00 13:08 14:00 Pulse 122 113 111 115 Resp 18 16 B/P (MAP) 117/63 117/42 (67) 117/56 119/68 (85) Pulse Ox 98 98 O2 Delivery Room Air Room Air 01/11/17 01/11/17 01/11/17 01/11/17 15:00 16:00 17:00 18:00 Temp 98.5 98.5 Pulse 98 94 87 87 Resp 18 18 16 18 B/P (MAP) 102/68 (79) 119/77 (91) 97/51 (66) 105/58 (74) Pulse Ox 98 97 97 99 O2 Delivery Room Air Room Air Room Air Room Air 01/11/17 01/11/17 01/11/17 01/11/17 19:00 19:37 20:15 20:17 Temp 98.0 98.0 Pulse 96 91 91 Resp 18 18 B/P (MAP) 125/88 (100) 124/66 (85) 124/66 Pulse Ox 96 94 O2 Delivery Room Air Room Air Room Air 01/11/17 01/11/17 01/11/17 01/11/17 21:00 22:00 23:00 23:22 Temp 98.2 98.2 Pulse 81 100 96 Resp 18 18 18 B/P (MAP) 119/71 (87) 102/66 (78) 116/88 (97) Pulse Ox 96 95 98 O2 Delivery Room Air Room Air Room Air Room Air 01/12/17 01/12/17 01/12/17 01/12/17 00:54 01:09 02:00 03:00 Pulse 93 93 96 97 Resp 18 18 20 18 B/P (MAP) 118/61 (80) 118/61 (80) Pulse Ox 99 99 95 97 O2 Delivery Room Air Room Air Room Air Room Air 01/12/17 01/12/17 01/12/17 01/12/17 04:00 04:11 05:12 06:00 Temp 98.5 98.5 Pulse 80 93 106 Resp 18 18 18 B/P (MAP) 119/56 (77) 119/56 (77) 105/80 (88) Pulse Ox 94 97 95 O2 Delivery Room Air Room Air Room Air Room Air 01/12/17 01/12/17 01/12/17 01/12/17 07:00 08:00 08:14 08:44 Temp 98.5 98.6 98.5 98.6 Pulse 108 94 108 108 Resp 18 18 B/P (MAP) 105/50 (68) 107/59 (75) 105/50 105/50 O2 Delivery Room Air Room Air 01/12/17 01/12/17 01/12/17 01/12/17 08:45 09:30 10:39 11:00 Temp 98.1 98.4 98.1 98.4 Pulse 108 96 87 Resp 16 16 B/P (MAP) 105/50 122/57 (78) 114/68 (83) Pulse Ox 98 99 O2 Delivery Room Air Room Air Room Air Intake and Output 01/11/17 01/11/17 01/12/17 15:00 23:00 07:00 Intake Total 876 ml 460 ml 600 ml Output Total 1550 ml 1 ml 300 ml Balance -674 ml 459 ml 300 ml TED DIOR MD Jan 12, 2017 12:31
[2017-01-12] MEDS: FUROSEMIDE 40 MG TABLET. PO SCH (13:15)
[2017-01-12] MEDS: LISINOPRIL 2.5 MG TABLET PO SCH (13:16)
--- NOTE | 2017-01-12 15:02 | PDOC ---
PROGRESS NOTES Chief Complaint Chief Complaint new onset afib with RVR, acute diastolic CHF tobaccoism, she is motivated for cessation dyspnea with acute CHF exacerbation, likely systolic and diastolic anxiety d/o elevated transaminitis, possible 2/2 chf hyperthyroid, restarted tapazole, was on home med list, assume prior diagnosed Graves diseae, thyroid storm History of Present Illness History of Present Illness card following failed cardioversion dvt ppx, may need AC. Vitals Vitals Vital Signs Date Time Temp Pulse Resp B/P (MAP) Pulse Ox O2 Delivery O2 Flow Rate FiO2 01/12/17 13:16 87 114/68 01/12/17 11:00 98.4 16 99 Room Air 98.4 Physical Exam General: Alert, Oriented X3, Cooperative, No acute distress Heart: Regular rate, No murmurs, Other (is irregularly irregular) Lungs: Clear Abdomen: Normal bowel sounds Extremities: No clubbing, No cyanosis Skin: No breakdown Labs LABS Laboratory Tests Test 01/12/17 04:00 Free Thyroxine 7.33 ng/dL (0.76-1.46) Free Triiodothyronine (T3) pg/mL 19.38 pg/mL (2.18-3.98) Review of Systems Review of Systems no n,.vd. Assessment and Plan Assessmemt and Plan Problems Medical Problems: (1) Acute congestive heart failure Status: Acute Problems: Comment Review of Relevant I have reviewed the following items sloan (where applicable) has been applied. Labs Laboratory Tests Test 01/11/17 05:00 01/11/17 11:50 01/12/17 04:00 White Blood Count 4.7 x10^3/uL (4.0-11.0) Red Blood Count 4.01 x10^6/uL (3.50-5.40) Hemoglobin 11.1 g/dL (12.0-15.5) Hematocrit 33.5 % (36.0-47.0) Mean Corpuscular Volume 84 fL (79-100) Mean Corpuscular Hemoglobin 28 pg (25-35) Mean Corpuscular Hemoglobin Concent 33 g/dL (31-37) Red Cell Distribution Width 14.8 % (11.5-14.5) Platelet Count 132 x10^3/uL (140-400) Neutrophils (%) (Auto) 17 % (31-73) Lymphocytes (%) (Auto) 69 % (24-48) Monocytes (%) (Auto) 13 % (0-9) Eosinophils (%) (Auto) 1 % (0-3) Basophils (%) (Auto) 0 % (0-3) Neutrophils # (Auto) 0.8 x10^3uL (1.8-7.7) Lymphocytes # (Auto) 3.3 x10^3/uL (1.0-4.8) Monocytes # (Auto) 0.6 x10^3/uL (0.0-1.1) Eosinophils # (Auto) 0.0 x10^3/uL (0.0-0.7) Basophils # (Auto) 0.0 x10^3/uL (0.0-0.2) Segmented Neutrophils % 11 % (35-66) Band Neutrophils % 2 % (0-9) Lymphocytes % 75 % (24-48) Monocytes % 11 % (0-10) Eosinophils % 1 % (0-5) Platelet Estimate Adequate (ADEQUATE) Sodium Level 139 mmol/L (136-145) Potassium Level 3.9 mmol/L (3.5-5.1) Chloride Level 106 mmol/L (98-107) Carbon Dioxide Level 20 mmol/L (21-32) Anion Gap 13 (6-14) Blood Urea Nitrogen 11 mg/dL (7-20) Creatinine 0.5 mg/dL (0.6-1.0) Estimated GFR (Cockcroft-Gault) 160.7 BUN/Creatinine Ratio 22 (6-20) Glucose Level 102 mg/dL (70-99) Calcium Level 9.2 mg/dL (8.5-10.1) Total Bilirubin 2.7 mg/dL (0.2-1.0) Direct Bilirubin 1.7 mg/dL (0.0-0.2) Aspartate Amino Transf (AST/SGOT) 56 U/L (15-37) Alanine Aminotransferase (ALT/SGPT) 33 U/L (14-59) Alkaline Phosphatase 230 U/L (46-116) Total Protein 6.8 g/dL (6.4-8.2) Albumin 3.0 g/dL (3.4-5.0) Albumin/Globulin Ratio 0.8 (1.0-1.7) Triglycerides Level 56 mg/dL (0-150) Cholesterol Level 78 mg/dL (0-200) LDL Cholesterol, Calculated 48 mg/dL (0-100) VLDL Cholesterol, Calculated 11 mg/dL (0-40) Non-HDL Cholesterol Calculated 59 mg/dL (0-129) HDL Cholesterol 19 mg/dL (40-60) Cholesterol/HDL Ratio 4.1 Thyroid Stimulating Hormone (TSH) < 0.007 uIU/mL (0.358-3.74) Nasal Screen MRSA (PCR) Negative (Negative) Free Thyroxine 7.33 ng/dL (0.76-1.46) Free Triiodothyronine (T3) pg/mL 19.38 pg/mL (2.18-3.98) Laboratory Tests Test 01/12/17 04:00 Free Thyroxine 7.33 ng/dL (0.76-1.46) Free Triiodothyronine (T3) pg/mL 19.38 pg/mL (2.18-3.98) Medications Current Medications Adenosine (Adenocard) 6 mg STK-MED ONCE IV ; Start 01/10/17 at 12:23; Stop at 12:24; Status DC Sodium Chloride 1,000 ml @ 100 mls/hr Q10H IV ; Start 01/10/17 at 13:00; Stop at 22:59; Status DC Diltiazem HCl (Cardizem) 25 mg STK-MED ONCE .ROUTE ; Start 01/10/17 at 12:52; Stop 01/10/17 at 12:53; Status DC Diltiazem HCl (Cardizem) 20 mg 1X ONCE IVP Last administered on 01/10/17 12:53 ; Start 01/10/17 at 13:15; Stop 01/10/17 at 13:16; Status DC Diltiazem HCl 125 mg/Dextrose 125 ml @ 0 mls/hr CONT PRN IV SEE I/O RECORD Last administered on 01/10/17 13:05; Start 01/10/17 at 13:00; Stop 01/11/17 at 12: 37; Status DC Adenosine (Adenocard) 18 mg 1X ONCE IV Last administered on 01/10/17 13:02; Start 01/10/17 at 13:15; Stop 01/10/17 at 13:16; Status DC Enoxaparin Sodium (Lovenox 80mg Syringe) 80 mg 1X ONCE SQ Last administered on 01/10/17t 13:50; Start 01/10/17 at 13:15; Stop 01/10/17 at 13:16; Status DC Lidocaine HCl (Viscous Lidocaine) 15 ml STK-MED ONCE .ROUTE ; Start 01/10/17 at 13:12; Stop 01/10/17 at 13:13; Status DC Benzocaine (Hurricaine One) 1 spray STK-MED ONCE .ROUTE ; Start 01/10/17 at 13:12 ; Stop 01/10/17 at 13:13; Status DC Lidocaine HCl (Xylocaine 2% Topical 30gm Tube) 30 lilli STK-MED ONCE TP ; Start at 13:12; Stop 01/10/17 at 13:13; Status DC Ondansetron HCl (Zofran) 4 mg PRN Q8HRS PRN IV NAUSEA/VOMITING; Start 01/10/17 at 13:30; Stop 01/11/17 at 13:29; Status DC Sodium Chloride 1,000 ml @ 50 mls/hr Q20H IV ; Start 01/10/17 at 13:24; Stop 01/11/17 at 13:23; Status DC Acetaminophen (Tylenol) 650 mg PRN Q4HRS PRN PO FEVER; Start 01/10/17 at 13:30; Stop 01/11/17 at 12:51; Status DC Lidocaine HCl (Lidocaine HCl 2% Abboject) 100 mg STK-MED ONCE .ROUTE ; Start 01/10/17 at 13:35; Stop 01/10/17 at 13:36; Status DC Propofol 20 ml @ As Directed STK-MED ONCE IV ; Start 01/10/17 at 13:36; Stop 01/10 at 13:37; Status DC Propofol 20 ml @ As Directed STK-MED ONCE IV ; Start 01/10/17 at 13:40; Stop 01/10 at 13:41; Status DC Amiodarone HCl (Cordarone) 150 mg STK-MED ONCE .ROUTE ; Start 01/10/17 at 13:53; Stop 01/10/17 at 13:54; Status DC Amiodarone HCl (Cordarone) 150 mg 1X ONCE IVP ; Start 01/10/17 at 13:55; Stop at 14:07; Status DC Amiodarone HCl (Cordarone) 150 mg 1X ONCE IVP Last administered on 01/10/17 14 :20; Start 01/10/17 at 14:15; Stop 01/10/17 at 14:16; Status DC Acetaminophen (Tylenol) 650 mg PRN Q6HRS PRN PO FEVER; Start 01/10/17 at 14:30 Ondansetron HCl (Zofran) 4 mg PRN Q6HRS PRN IV NAUSEA/VOMITING; Start 01/10/17 at 14:30 Morphine Sulfate 2 mg PRN Q2HR PRN IV PAIN; Start 01/10/17 at 14:30 Tramadol HCl (Ultram) 50 mg PRN Q6HRS PRN PO PAIN; Start 01/10/17 at 14:30 Hydralazine HCl (Apresoline) 10 mg PRN Q4HRS PRN IVP ELEVATED BP, SEE COMMENTS ; Start 01/10/17 at 14:30 Docusate Sodium (Colace) 100 mg PRN DAILY PRN PO CONSTIPATION; Start 01/10/17 at 14:30 Enoxaparin Sodium (Lovenox 40mg Syringe) 40 mg Q24H SQ ; Start 01/10/17 at 15:00 ; Stop 01/10/17 at 15:47; Status DC Amiodarone HCl 150 mg/Dextrose 103 ml @ 618 mls/hr 1X ONCE IV ; Start 01/10/17 at 15:00; Stop 01/11/17 at 12:37; Status DC Amiodarone HCl 900 mg/Dextrose 518 ml @ 0 mls/hr CONT PRN IV SEE I/O RECORD Last administered on 01/10/17 15:55; Start 01/10/17 at 15:00; Stop 01/10/17 at 15: 56; Status DC Amiodarone HCl 900 mg/Dextrose 518 ml @ 0 mls/hr CONT PRN IV SEE I/O RECORD; Start 01/10/17 at 15:00; Stop 01/10/17 at 15:03; Status DC Digoxin (Lanoxin) 500 mcg 1X ONCE IV Last administered on 01/10/17 15:49; Start 01/10/17 at 15:45; Stop 01/10/17 at 15:46; Status DC Enoxaparin Sodium (Lovenox 80mg Syringe) 80 mg BID SQ Last administered on 08:45; Start 01/10/17 at 21:00 Amiodarone HCl 900 mg/Dextrose 518 ml @ 0 mls/hr CONT PRN IV SEE I/O RECORD Last administered on 01/11/17 07:32; Start 01/10/17 at 16:00; Stop 01/11/17 at 07: 33; Status DC Digoxin (Lanoxin) 250 mcg Q6H IV Last administered on 01/11/17 04:13; Start 01/10/17 at 22:00; Stop 01/11/17 at 04:01; Status DC Nicotine (Nicoderm Cq 21mg) 1 patch DAILY TD ; Start 01/10/17 at 18:00 Alprazolam (Xanax) 0.25 mg PRN Q8HRS PRN PO ANXIETY / AGITATION Last administered on 01/10/17 21:57; Start 01/10/17 at 17:30 Lorazepam (Ativan) 2 mg PRN Q2HR PRN PO For CIWA 8-14; Start 01/10/17 at 17:30 Throat Lozenges (Chloraseptic) 1 spray PRN Q2HR PRN PO SORE THROAT Last administered on 01/10/17 21:58; Start 01/10/17 at 20:00 Info (Anti-Coagulation Monitoring By Pharmacy) 1 each PRN DAILY PRN MC SEE COMMENTS Last administered on 01/11/17 07:50; Start 01/11/17 at 08:00 Furosemide (Lasix) 40 mg 1X ONCE IVP Last administered on 01/11/17 09:14; Start 01/11/17 at 08:30; Stop 01/11/17 at 08:32; Status DC Digoxin (Lanoxin) 125 mcg 1X ONCE PO Last administered on 01/11/17 09:12; Start 01/11/17 at 08:30; Stop 01/11/17 at 08:32; Status DC Dronedarone (Multaq) 400 mg BIDWMEALS PO Last administered on 01/12/17 08:14; Start 01/11/17 at 12:30 Propranolol HCl (Inderal) 40 mg BID PO Last administered on 01/12/17 08:44; Start 01/11/17 at 13:00 Digoxin (Lanoxin) 125 mcg DAILY PO Last administered on 01/12/17 08:45; Start 01/12/17 at 09:00 Methimazole (Tapazole) 10 mg TID PO Last administered on 01/12/17 08:44; Start 01/11/17 at 18:00; Stop 01/12/17 at 10:08; Status DC Dronedarone (Multaq) 400 mg 1X ONCE PO Last administered on 01/11/17 20:17; Start 01/11/17 at 21:00; Stop 01/11/17 at 21:01; Status DC Methimazole (Tapazole) 15 mg TID PO Last administered on 01/12/17 13:16; Start 01/12/17 at 14:00 Furosemide (Lasix) 40 mg DAILY PO Last administered on 01/12/17 13:15; Start at 11:00 Lisinopril (Prinivil) 2.5 mg DAILY PO Last administered on 01/12/17 13:16; Start 01/12/17 at 11:00 Active Scripts Active Eliquis (Apixaban) 5 Mg Tablet 5 Mg PO BID Propranolol Hcl 40 Mg Tablet 40 Mg PO BID Multaq (Dronedarone Hcl) 400 Mg Tablet 400 Mg PO BIDWMEALS Digoxin 125 Mcg Tablet 125 Mcg PO DAILY Tapazole (Methimazole) 10 Mg Tablet 15 Mg PO TID Reported Ibuprofen 800 Mg Tablet 800 Mg PO PRN Q6HRS PRN Levora-28 (Levonorgestrel-Eth Estradiol) 1 Each Tablet 1 Tab PO DAILY Methimazole 10 Mg Tablet 20 Mg PO DAILY Vitals/I & O Vital Sign - Last 24 Hours 01/11/17 01/11/17 01/11/17 01/11/17 16:00 17:00 18:00 19:00 Temp 98.5 98.0 98.5 98.0 Pulse 94 87 87 96 Resp 18 16 18 18 B/P (MAP) 119/77 (91) 97/51 (66) 105/58 (74) 125/88 (100) Pulse Ox 97 97 99 96 O2 Delivery Room Air Room Air Room Air Room Air 01/11/17 01/11/17 01/11/17 01/11/17 19:37 20:15 20:17 21:00 Pulse 91 91 81 Resp 18 18 B/P (MAP) 124/66 (85) 124/66 119/71 (87) Pulse Ox 94 96 O2 Delivery Room Air Room Air Room Air 01/11/17 01/11/17 01/11/17 01/12/17 22:00 23:00 23:22 00:54 Temp 98.2 98.2 Pulse 100 96 93 Resp 18 18 18 B/P (MAP) 102/66 (78) 116/88 (97) 118/61 (80) Pulse Ox 95 98 99 O2 Delivery Room Air Room Air Room Air Room Air 01/12/17 01/12/17 01/12/17 01/12/17 01:09 02:00 03:00 04:00 Temp 98.5 98.5 Pulse 93 96 97 80 Resp 18 20 18 18 B/P (MAP) 118/61 (80) 119/56 (77) Pulse Ox 99 95 97 94 O2 Delivery Room Air Room Air Room Air Room Air 01/12/17 01/12/17 01/12/17 01/12/17 04:11 05:12 06:00 07:00 Temp 98.5 98.5 Pulse 93 106 108 Resp 18 18 18 B/P (MAP) 119/56 (77) 105/80 (88) 105/50 (68) Pulse Ox 97 95 O2 Delivery Room Air Room Air Room Air Room Air 01/12/17 01/12/17 01/12/17 01/12/17 08:00 08:14 08:44 08:45 Temp 98.6 98.6 Pulse 94 108 108 108 Resp 18 B/P (MAP) 107/59 (75) 105/50 105/50 105/50 O2 Delivery Room Air 01/12/17 01/12/17 01/12/17 01/12/17 09:30 10:39 11:00 13:16 Temp 98.1 98.4 98.1 98.4 Pulse 96 87 87 Resp 16 16 B/P (MAP) 122/57 (78) 114/68 (83) 114/68 Pulse Ox 98 99 O2 Delivery Room Air Room Air Room Air Intake and Output 01/11/17 01/11/17 01/12/17 15:00 23:00 07:00 Intake Total 876 ml 460 ml 600 ml Output Total 1550 ml 1 ml 300 ml Balance -674 ml 459 ml 300 ml DESHAUN COLORADO MD Jan 12, 2017 15:02
[2017-01-13 03:40] VITALS: BP 110/57
[2017-01-13 07:20] VITALS: BP 125/48
[2017-01-13 07:47] LABS: BASO % 0 % (0-3); EOS % 3 % (0-3); HEMATOCRIT 31.8 % (36.0-47.0); HEMOGLOBIN 10.4 g/dL (12.0-15.5); LYMPH # 3.1 x10^3/uL (1.0-4.8); LYMPH % 64 % (24-48); MEAN CORPUSCULAR HEMOGLOBIN 28 pg (25-35); MEAN CORPUSCULAR HGB CONC 33 g/dL (31-37); MEAN CORPUSCULAR VOLUME 85 fL (79-100); MONO % 14 % (0-9); NEUT % 20 % (31-73); PLATELET COUNT 124 x10^3/uL (140-400); RED BLOOD COUNT 3.74 x10^6/uL (3.50-5.40); RED CELL DISTRIBUTION WIDTH 14.8 % (11.5-14.5); WHITE BLOOD COUNT 4.8 x10^3/uL (4.0-11.0)
[2017-01-13 08:07] LABS: ALBUMIN 2.7 g/dL (3.4-5.0); ALBUMIN/GLOBULIN RATIO 0.7 (1.0-1.7); CALCIUM 9.4 mg/dL (8.5-10.1); CREATININE 0.6 mg/dL (0.6-1.0); GFR 130.2; POTASSIUM 3.7 mmol/L (3.5-5.1); TOTAL BILIRUBIN 1.5 mg/dL (0.2-1.0); TOTAL PROTEIN 6.5 g/dL (6.4-8.2)
[2017-01-13] MEDS: methIMAzole 10 MG TABLET PO SCH ×2 (09:14→14:35)
[2017-01-13] MEDS: PROPRANOLOL 40 MG TABLET. PO SCH (09:15)
[2017-01-13] MEDS: LISINOPRIL 2.5 MG TABLET PO SCH (09:16)
[2017-01-13] MEDS: DRONEDARONE HCL 400 MG TABLET PO SCH (09:16)
[2017-01-13] MEDS: DIGOXIN 125 MCG TABLET. PO SCH (09:16)
[2017-01-13] MEDS: FUROSEMIDE 40 MG TABLET. PO SCH (09:16)
[2017-01-13] MEDS: NICOTINE 21MG PATCH. TD SCH (09:17)
[2017-01-13 11:00] VITALS: BP 126/57
[2017-01-13] MEDS ORDERED: FURO-69 PO (12:51)
[2017-01-13] MEDS ORDERED: LISI2.5T PO (14:17)
--- NOTE | 2017-01-13 14:49 | PDOC3 ---
Discharge Summary Visit Information Date of Admission: Jan 10, 2017 Date of Discharge: Jan 13, 2017 Admitting Diagnosis: afib RVR, dyspnea Final Diagnosis Hyperthyroid, thryriod storm new onset afib with RVR, w/ acute diastolic CHF tobaccoism, she is motivated for cessation dyspnea with acute CHF exacerbation, systolic anxiety d/o elevated transaminitis, possible 2/2 chf hyperthyroid, restarted tapazole, was on home med list, assume prior diagnosed Graves disease, thyroid storm Problems Medical Problems: (1) Acute congestive heart failure Status: Acute Brief Hospital Course Allergies Allergies Coded Allergies Type Severity Reaction Last Updated Verified No Known Drug Allergies 01/10/17 No Vital Signs Vital Signs Date Time Temp Pulse Resp B/P (MAP) Pulse Ox O2 Delivery O2 Flow Rate FiO2 01/13/17 11:00 98.2 93 18 126/57 (80) 97 Room Air 98.2 Lab Results Laboratory Tests Test 01/12/17 04:00 01/13/17 07:05 Free Thyroxine 7.33 ng/dL (0.76-1.46) Free Triiodothyronine (T3) pg/mL 19.38 pg/mL (2.18-3.98) White Blood Count 4.8 x10^3/uL (4.0-11.0) Red Blood Count 3.74 x10^6/uL (3.50-5.40) Hemoglobin 10.4 g/dL (12.0-15.5) Hematocrit 31.8 % (36.0-47.0) Mean Corpuscular Volume 85 fL (79-100) Mean Corpuscular Hemoglobin 28 pg (25-35) Mean Corpuscular Hemoglobin Concent 33 g/dL (31-37) Red Cell Distribution Width 14.8 % (11.5-14.5) Platelet Count 124 x10^3/uL (140-400) Neutrophils (%) (Auto) 20 % (31-73) Lymphocytes (%) (Auto) 64 % (24-48) Monocytes (%) (Auto) 14 % (0-9) Eosinophils (%) (Auto) 3 % (0-3) Basophils (%) (Auto) 0 % (0-3) Neutrophils # (Auto) 0.9 x10^3uL (1.8-7.7) Lymphocytes # (Auto) 3.1 x10^3/uL (1.0-4.8) Monocytes # (Auto) 0.7 x10^3/uL (0.0-1.1) Eosinophils # (Auto) 0.1 x10^3/uL (0.0-0.7) Basophils # (Auto) 0.0 x10^3/uL (0.0-0.2) Sodium Level 140 mmol/L (136-145) Potassium Level 3.7 mmol/L (3.5-5.1) Chloride Level 107 mmol/L (98-107) Carbon Dioxide Level 24 mmol/L (21-32) Anion Gap 9 (6-14) Blood Urea Nitrogen 9 mg/dL (7-20) Creatinine 0.6 mg/dL (0.6-1.0) Estimated GFR (Cockcroft-Gault) 130.2 BUN/Creatinine Ratio 15 (6-20) Glucose Level 135 mg/dL (70-99) Calcium Level 9.4 mg/dL (8.5-10.1) Total Bilirubin 1.5 mg/dL (0.2-1.0) Aspartate Amino Transf (AST/SGOT) 35 U/L (15-37) Alanine Aminotransferase (ALT/SGPT) 26 U/L (14-59) Alkaline Phosphatase 198 U/L (46-116) Total Protein 6.5 g/dL (6.4-8.2) Albumin 2.7 g/dL (3.4-5.0) Albumin/Globulin Ratio 0.7 (1.0-1.7) Laboratory Tests Test 01/13/17 07:05 White Blood Count 4.8 x10^3/uL (4.0-11.0) Red Blood Count 3.74 x10^6/uL (3.50-5.40) Hemoglobin 10.4 g/dL (12.0-15.5) Hematocrit 31.8 % (36.0-47.0) Mean Corpuscular Volume 85 fL (79-100) Mean Corpuscular Hemoglobin 28 pg (25-35) Mean Corpuscular Hemoglobin Concent 33 g/dL (31-37) Red Cell Distribution Width 14.8 % (11.5-14.5) Platelet Count 124 x10^3/uL (140-400) Neutrophils (%) (Auto) 20 % (31-73) Lymphocytes (%) (Auto) 64 % (24-48) Monocytes (%) (Auto) 14 % (0-9) Eosinophils (%) (Auto) 3 % (0-3) Basophils (%) (Auto) 0 % (0-3) Neutrophils # (Auto) 0.9 x10^3uL (1.8-7.7) Lymphocytes # (Auto) 3.1 x10^3/uL (1.0-4.8) Monocytes # (Auto) 0.7 x10^3/uL (0.0-1.1) Eosinophils # (Auto) 0.1 x10^3/uL (0.0-0.7) Basophils # (Auto) 0.0 x10^3/uL (0.0-0.2) Sodium Level 140 mmol/L (136-145) Potassium Level 3.7 mmol/L (3.5-5.1) Chloride Level 107 mmol/L (98-107) Carbon Dioxide Level 24 mmol/L (21-32) Anion Gap 9 (6-14) Blood Urea Nitrogen 9 mg/dL (7-20) Creatinine 0.6 mg/dL (0.6-1.0) Estimated GFR (Cockcroft-Gault) 130.2 BUN/Creatinine Ratio 15 (6-20) Glucose Level 135 mg/dL (70-99) Calcium Level 9.4 mg/dL (8.5-10.1) Total Bilirubin 1.5 mg/dL (0.2-1.0) Aspartate Amino Transf (AST/SGOT) 35 U/L (15-37) Alanine Aminotransferase (ALT/SGPT) 26 U/L (14-59) Alkaline Phosphatase 198 U/L (46-116) Total Protein 6.5 g/dL (6.4-8.2) Albumin 2.7 g/dL (3.4-5.0) Albumin/Globulin Ratio 0.7 (1.0-1.7) Brief Hospital Course Ms. Carter is a 46 old admitted with dyspnea, and tachycardia, afib w RVR, could not cardiovert, rate control difficulty with mult agents, TSH undetectable, her home meds included Tapazole and he had not been taking, T3free and T4 free were very elevated, Tapazole larger dose 15 TID per pharmacy recs, Labetalol got rate control EToh and Tobacco cessation, treat as CHF, but management of thyroid storm should improved cardiac function ECHO Left ventricle systolic function is mildly impaired. The overall LV function has improved in comparison to 01/10/2017 BRANDEN exam. The Ejection Fraction is now 40%. There is mild global hypokinesis of the left ventricle. There is a flattened septum consistent with right ventricle volume overload. Tissue Doppler imaging reveals moderate left ventricular diastolic dysfunction. Discharge Information Condition at Discharge: Improved Follow Up: Weeks Disposition/Orders: D/C to Home Scheduled Apixaban (Eliquis), 5 MG PO BID Digoxin (Digoxin), 125 MCG PO DAILY Dronedarone Hcl (Multaq), 400 MG PO BIDWMEALS Furosemide (Lasix), 1 TAB PO DAILY Levonorgestrel-Eth Estradiol (Levora-28), 1 TAB PO DAILY, (Reported) Lisinopril (Lisinopril), 1 TAB PO DAILY, (Reported) Methimazole (Tapazole), 15 MG PO TID Propranolol Hcl (Propranolol Hcl), 40 MG PO BID Discontinued Medications Ibuprofen (Ibuprofen), 800 MG PO PRN Q6HRS PRN for INFLAMMATION, (Reported) Methimazole (Methimazole), 20 MG PO DAILY, (Reported) Patient Instructions Patient Instructions time > 30 min DESHAUN COLORADO MD Jan 13, 2017 14:49
--- NOTE | 2017-01-13 15:06 | PDOC ---
PROGRESS NOTES Subjective Subjective The patient is feeling better today. Objective Objective Vital Signs Date Time Temp Pulse Resp B/P (MAP) Pulse Ox O2 Delivery O2 Flow Rate FiO2 01/13/17 11:00 98.2 93 18 126/57 (80) 97 Room Air 98.2 01/10/17 16:35 2.0 Intake and Output 01/13/17 07:00 Intake Total 1830 ml Output Total 650 ml Balance 1180 ml Intake Oral 1830 ml Output Urine Total 650 ml # Voids 2 Physical Exam Abdomen: Normal bowel sounds Heart: Other (is irregularly irregular) Extremities: No clubbing General: No acute distress Lungs: Clear to auscultation Assessment Assessment Problems Medical Problems: (1) Acute congestive heart failure Status: Acute 1. AFIB with RVR; hyperthyroidism likely contributor, ventricular rate much better controlled with medication changes 2. Acute on chronic systolic heart failure; improved with diuresis and rate control. 3. Cardiomyopathy; LVEF initially 10%, now 40% per TTE 4. Hyperthyroidism; TSH <0.007. Methimazole initiated. Per PCP 5. Alcohol abuse 6. Elevated LFT's Comment Review of Relevant I have reviewed the following items sloan (where applicable) has been applied. Labs Laboratory Tests Test 01/12/17 04:00 01/13/17 07:05 Free Thyroxine 7.33 ng/dL (0.76-1.46) Free Triiodothyronine (T3) pg/mL 19.38 pg/mL (2.18-3.98) White Blood Count 4.8 x10^3/uL (4.0-11.0) Red Blood Count 3.74 x10^6/uL (3.50-5.40) Hemoglobin 10.4 g/dL (12.0-15.5) Hematocrit 31.8 % (36.0-47.0) Mean Corpuscular Volume 85 fL (79-100) Mean Corpuscular Hemoglobin 28 pg (25-35) Mean Corpuscular Hemoglobin Concent 33 g/dL (31-37) Red Cell Distribution Width 14.8 % (11.5-14.5) Platelet Count 124 x10^3/uL (140-400) Neutrophils (%) (Auto) 20 % (31-73) Lymphocytes (%) (Auto) 64 % (24-48) Monocytes (%) (Auto) 14 % (0-9) Eosinophils (%) (Auto) 3 % (0-3) Basophils (%) (Auto) 0 % (0-3) Neutrophils # (Auto) 0.9 x10^3uL (1.8-7.7) Lymphocytes # (Auto) 3.1 x10^3/uL (1.0-4.8) Monocytes # (Auto) 0.7 x10^3/uL (0.0-1.1) Eosinophils # (Auto) 0.1 x10^3/uL (0.0-0.7) Basophils # (Auto) 0.0 x10^3/uL (0.0-0.2) Sodium Level 140 mmol/L (136-145) Potassium Level 3.7 mmol/L (3.5-5.1) Chloride Level 107 mmol/L (98-107) Carbon Dioxide Level 24 mmol/L (21-32) Anion Gap 9 (6-14) Blood Urea Nitrogen 9 mg/dL (7-20) Creatinine 0.6 mg/dL (0.6-1.0) Estimated GFR (Cockcroft-Gault) 130.2 BUN/Creatinine Ratio 15 (6-20) Glucose Level 135 mg/dL (70-99) Calcium Level 9.4 mg/dL (8.5-10.1) Total Bilirubin 1.5 mg/dL (0.2-1.0) Aspartate Amino Transf (AST/SGOT) 35 U/L (15-37) Alanine Aminotransferase (ALT/SGPT) 26 U/L (14-59) Alkaline Phosphatase 198 U/L (46-116) Total Protein 6.5 g/dL (6.4-8.2) Albumin 2.7 g/dL (3.4-5.0) Albumin/Globulin Ratio 0.7 (1.0-1.7) Laboratory Tests Test 01/13/17 07:05 White Blood Count 4.8 x10^3/uL (4.0-11.0) Red Blood Count 3.74 x10^6/uL (3.50-5.40) Hemoglobin 10.4 g/dL (12.0-15.5) Hematocrit 31.8 % (36.0-47.0) Mean Corpuscular Volume 85 fL (79-100) Mean Corpuscular Hemoglobin 28 pg (25-35) Mean Corpuscular Hemoglobin Concent 33 g/dL (31-37) Red Cell Distribution Width 14.8 % (11.5-14.5) Platelet Count 124 x10^3/uL (140-400) Neutrophils (%) (Auto) 20 % (31-73) Lymphocytes (%) (Auto) 64 % (24-48) Monocytes (%) (Auto) 14 % (0-9) Eosinophils (%) (Auto) 3 % (0-3) Basophils (%) (Auto) 0 % (0-3) Neutrophils # (Auto) 0.9 x10^3uL (1.8-7.7) Lymphocytes # (Auto) 3.1 x10^3/uL (1.0-4.8) Monocytes # (Auto) 0.7 x10^3/uL (0.0-1.1) Eosinophils # (Auto) 0.1 x10^3/uL (0.0-0.7) Basophils # (Auto) 0.0 x10^3/uL (0.0-0.2) Sodium Level 140 mmol/L (136-145) Potassium Level 3.7 mmol/L (3.5-5.1) Chloride Level 107 mmol/L (98-107) Carbon Dioxide Level 24 mmol/L (21-32) Anion Gap 9 (6-14) Blood Urea Nitrogen 9 mg/dL (7-20) Creatinine 0.6 mg/dL (0.6-1.0) Estimated GFR (Cockcroft-Gault) 130.2 BUN/Creatinine Ratio 15 (6-20) Glucose Level 135 mg/dL (70-99) Calcium Level 9.4 mg/dL (8.5-10.1) Total Bilirubin 1.5 mg/dL (0.2-1.0) Aspartate Amino Transf (AST/SGOT) 35 U/L (15-37) Alanine Aminotransferase (ALT/SGPT) 26 U/L (14-59) Alkaline Phosphatase 198 U/L (46-116) Total Protein 6.5 g/dL (6.4-8.2) Albumin 2.7 g/dL (3.4-5.0) Albumin/Globulin Ratio 0.7 (1.0-1.7) Medications Current Medications Adenosine (Adenocard) 6 mg STK-MED ONCE IV ; Start 01/10/17 at 12:23; Stop at 12:24; Status DC Sodium Chloride 1,000 ml @ 100 mls/hr Q10H IV ; Start 01/10/17 at 13:00; Stop at 22:59; Status DC Diltiazem HCl (Cardizem) 25 mg STK-MED ONCE .ROUTE ; Start 01/10/17 at 12:52; Stop 01/10/17 at 12:53; Status DC Diltiazem HCl (Cardizem) 20 mg 1X ONCE IVP Last administered on 01/10/17 12:53 ; Start 01/10/17 at 13:15; Stop 01/10/17 at 13:16; Status DC Diltiazem HCl 125 mg/Dextrose 125 ml @ 0 mls/hr CONT PRN IV SEE I/O RECORD Last administered on 01/10/17 13:05; Start 01/10/17 at 13:00; Stop 01/11/17 at 12: 37; Status DC Adenosine (Adenocard) 18 mg 1X ONCE IV Last administered on 01/10/17 13:02; Start 01/10/17 at 13:15; Stop 01/10/17 at 13:16; Status DC Enoxaparin Sodium (Lovenox 80mg Syringe) 80 mg 1X ONCE SQ Last administered on 01/10/17 13:50; Start 01/10/17 at 13:15; Stop 01/10/17 at 13:16; Status DC Lidocaine HCl (Viscous Lidocaine) 15 ml STK-MED ONCE .ROUTE ; Start 01/10/17 at 13:12; Stop 01/10/17 at 13:13; Status DC Benzocaine (Hurricaine One) 1 spray STK-MED ONCE .ROUTE ; Start 01/10/17 at 13:12 ; Stop 01/10/17 at 13:13; Status DC Lidocaine HCl (Xylocaine 2% Topical 30gm Tube) 30 lilli STK-MED ONCE TP ; Start at 13:12; Stop 01/10/17 at 13:13; Status DC Ondansetron HCl (Zofran) 4 mg PRN Q8HRS PRN IV NAUSEA/VOMITING; Start 01/10/17 at 13:30; Stop 01/11/17 at 13:29; Status DC Sodium Chloride 1,000 ml @ 50 mls/hr Q20H IV ; Start 01/10/17 at 13:24; Stop 01/11/17 at 13:23; Status DC Acetaminophen (Tylenol) 650 mg PRN Q4HRS PRN PO FEVER; Start 01/10/17 at 13:30; Stop 01/11/17 at 12:51; Status DC Lidocaine HCl (Lidocaine HCl 2% Abboject) 100 mg STK-MED ONCE .ROUTE ; Start 01/10/17 at 13:35; Stop 01/10/17 at 13:36; Status DC Propofol 20 ml @ As Directed STK-MED ONCE IV ; Start 01/10/17 at 13:36; Stop 01/10 at 13:37; Status DC Propofol 20 ml @ As Directed STK-MED ONCE IV ; Start 01/10/17 at 13:40; Stop 01/10 at 13:41; Status DC Amiodarone HCl (Cordarone) 150 mg STK-MED ONCE .ROUTE ; Start 01/10/17 at 13:53; Stop 01/10/17 at 13:54; Status DC Amiodarone HCl (Cordarone) 150 mg 1X ONCE IVP ; Start 01/10/17 at 13:55; Stop at 14:07; Status DC Amiodarone HCl (Cordarone) 150 mg 1X ONCE IVP Last administered on 01/10/17t 14 :20; Start 01/10/17 at 14:15; Stop 01/10/17 at 14:16; Status DC Acetaminophen (Tylenol) 650 mg PRN Q6HRS PRN PO FEVER; Start 01/10/17 at 14:30 Ondansetron HCl (Zofran) 4 mg PRN Q6HRS PRN IV NAUSEA/VOMITING; Start 01/10/17 at 14:30 Morphine Sulfate 2 mg PRN Q2HR PRN IV PAIN; Start 01/10/17 at 14:30 Tramadol HCl (Ultram) 50 mg PRN Q6HRS PRN PO PAIN; Start 01/10/17 at 14:30 Hydralazine HCl (Apresoline) 10 mg PRN Q4HRS PRN IVP ELEVATED BP, SEE COMMENTS ; Start 01/10/17 at 14:30 Docusate Sodium (Colace) 100 mg PRN DAILY PRN PO CONSTIPATION; Start 01/10/17 at 14:30 Enoxaparin Sodium (Lovenox 40mg Syringe) 40 mg Q24H SQ ; Start 01/10/17 at 15:00 ; Stop 01/10/17 at 15:47; Status DC Amiodarone HCl 150 mg/Dextrose 103 ml @ 618 mls/hr 1X ONCE IV ; Start 01/10/17 at 15:00; Stop 01/11/17 at 12:37; Status DC Amiodarone HCl 900 mg/Dextrose 518 ml @ 0 mls/hr CONT PRN IV SEE I/O RECORD Last administered on 01/10/17 15:55; Start 01/10/17 at 15:00; Stop 01/10/17 at 15: 56; Status DC Amiodarone HCl 900 mg/Dextrose 518 ml @ 0 mls/hr CONT PRN IV SEE I/O RECORD; Start 01/10/17 at 15:00; Stop 01/10/17 at 15:03; Status DC Digoxin (Lanoxin) 500 mcg 1X ONCE IV Last administered on 01/10/17 15:49; Start 01/10/17 at 15:45; Stop 01/10/17 at 15:46; Status DC Enoxaparin Sodium (Lovenox 80mg Syringe) 80 mg BID SQ Last administered on 09:17; Start 01/10/17 at 21:00 Amiodarone HCl 900 mg/Dextrose 518 ml @ 0 mls/hr CONT PRN IV SEE I/O RECORD Last administered on 01/11/17 07:32; Start 01/10/17 at 16:00; Stop 01/11/17 at 07: 33; Status DC Digoxin (Lanoxin) 250 mcg Q6H IV Last administered on 01/11/17 04:13; Start 01/10/17 at 22:00; Stop 01/11/17 at 04:01; Status DC Nicotine (Nicoderm Cq 21mg) 1 patch DAILY TD ; Start 01/10/17 at 18:00 Alprazolam (Xanax) 0.25 mg PRN Q8HRS PRN PO ANXIETY / AGITATION Last administered on 01/10/17 21:57; Start 01/10/17 at 17:30 Lorazepam (Ativan) 2 mg PRN Q2HR PRN PO For CIWA 8-14; Start 01/10/17 at 17:30 Throat Lozenges (Chloraseptic) 1 spray PRN Q2HR PRN PO SORE THROAT Last administered on 01/10/17 21:58; Start 01/10/17 at 20:00 Info (Anti-Coagulation Monitoring By Pharmacy) 1 each PRN DAILY PRN MC SEE COMMENTS Last administered on 01/11/17 07:50; Start 01/11/17 at 08:00 Furosemide (Lasix) 40 mg 1X ONCE IVP Last administered on 01/11/17 09:14; Start 01/11/17 at 08:30; Stop 01/11/17 at 08:32; Status DC Digoxin (Lanoxin) 125 mcg 1X ONCE PO Last administered on 01/11/17 09:12; Start 01/11/17 at 08:30; Stop 01/11/17 at 08:32; Status DC Dronedarone (Multaq) 400 mg BIDWMEALS PO Last administered on 01/13/17 09:16; Start 01/11/17 at 12:30 Propranolol HCl (Inderal) 40 mg BID PO Last administered on 01/13/17 09:15; Start 01/11/17 at 13:00 Digoxin (Lanoxin) 125 mcg DAILY PO Last administered on 01/13/17 09:16; Start 01/12/17 at 09:00 Methimazole (Tapazole) 10 mg TID PO Last administered on 01/12/17 08:44; Start 01/11/17 at 18:00; Stop 01/12/17 at 10:08; Status DC Dronedarone (Multaq) 400 mg 1X ONCE PO Last administered on 01/11/17 20:17; Start 01/11/17 at 21:00; Stop 01/11/17 at 21:01; Status DC Methimazole (Tapazole) 15 mg TID PO Last administered on 01/13/17 14:35; Start 01/12/17 at 14:00 Furosemide (Lasix) 40 mg DAILY PO Last administered on 01/13/17 09:16; Start at 11:00 Lisinopril (Prinivil) 2.5 mg DAILY PO Last administered on 01/13/17t 09:16; Start 01/12/17 at 11:00 Active Scripts Active Lasix (Furosemide) 20 Mg Tablet 1 Tab PO DAILY Eliquis (Apixaban) 5 Mg Tablet 5 Mg PO BID Propranolol Hcl 40 Mg Tablet 40 Mg PO BID Multaq (Dronedarone Hcl) 400 Mg Tablet 400 Mg PO BIDWMEALS Digoxin 125 Mcg Tablet 125 Mcg PO DAILY Tapazole (Methimazole) 10 Mg Tablet 15 Mg PO TID Reported Lisinopril 2.5 Mg Tablet 1 Tab PO DAILY Levora-28 (Levonorgestrel-Eth Estradiol) 1 Each Tablet 1 Tab PO DAILY Vitals/I & O Vital Sign - Last 24 Hours 01/12/17 01/12/17 01/12/17 01/12/17 17:18 19:35 20:00 20:44 Temp 98.4 98.4 Pulse 107 101 101 Resp 17 B/P (MAP) 111/57 (75) 111/57 Pulse Ox 97 O2 Delivery Room Air Room Air 01/12/17 01/13/17 01/13/17 01/13/17 23:54 03:40 07:20 07:30 Temp 97.6 97.1 97.9 97.6 97.1 97.9 Pulse 85 91 105 Resp 22 18 20 B/P (MAP) 107/66 (80) 110/57 (74) 125/48 (73) Pulse Ox 96 95 96 O2 Delivery Room Air Room Air Room Air Room Air 01/13/17 01/13/17 01/13/17 01/13/17 09:15 09:16 09:16 09:16 Pulse 105 105 105 105 B/P (MAP) 125/48 125/48 125/48 01/13/17 11:00 Temp 98.2 98.2 Pulse 93 Resp 18 B/P (MAP) 126/57 (80) Pulse Ox 97 O2 Delivery Room Air Intake and Output 01/12/17 01/12/17 01/13/17 15:00 23:00 07:00 Intake Total 780 ml 850 ml 200 ml Output Total 650 ml Balance 780 ml 200 ml 200 ml TED DIOR MD Jan 13, 2017 15:06
== END 2017-01-13 15:20 | disposition home or self-care (01) | DRG 643 ==
LOC: ER 12:14 → 2 NORTH 13:08 → 1 WEST ICU 14:21 → 2 NORTH 01-12 09:30
PROVIDERS: ADMIT Internal Medicine; ATTEND Internal Medicine
PROC: B24BZZ4 Ultrasonography of Heart with Aorta, Transesophageal (ICD-10-PCS; principal; 2017-01-10 13:30)
DX: E05.00 Thyrotoxicosis with diffuse goiter without thyrotoxic crisis or storm (principal); I50.43 Acute on chronic combined systolic (congestive) and diastolic (congestive) heart failure; I42.9 Cardiomyopathy, unspecified; I48.91 Unspecified atrial fibrillation; F10.10 Alcohol abuse, uncomplicated; F17.210 Nicotine dependence, cigarettes, uncomplicated; F41.9 Anxiety disorder, unspecified; Z82.49 Family history of ischemic heart disease and other diseases of the circulatory system
CPT/HCPCS: 36415; 71010; 80048; 80053; 80061; 82248; 82553; 83880; 84439; 84443; 84481; 84484; 85007; 85027; 87641; 92960; 93005; 93306; 93312; 93325; 96365; 96366; 96375; J0153; J0282; J1160; J1650; J1940; J2704; J3490; 99291-25

== ENCOUNTER 2017-06-23 11:28 | Inpatient (IN) | payer BC ==
[2017-06-23] MEDS ORDERED: ADENOSINE 6 MG/2 ML VIAL. IV (11:40)
[2017-06-23] MEDS: ADENOSINE 6 MG/2 ML VIAL. IV (12:00)
[2017-06-23] MEDS: LABETALOL 20 MG/4 ML DISP.SYRIN. IVP ×2 (12:06→12:45)
[2017-06-23] MEDS: IV NORMAL SALINE 1000ML BAG 1,000 ML IV ×2 (12:06→15:08)
[2017-06-23] MEDS: DIGOXIN IV 500 MCG/2 ML AMPUL. IV ×2 (12:07→14:17)
[2017-06-23 12:16] LABS: ADD MAN DIFF? NO
[2017-06-23 12:29] LABS: ANION GAP 13 (6-14); BLOOD UREA NITROGEN 23 mg/dL (7-20); BUN/CREATININE RATIO 38 (6-20); CALCIUM 8.2 mg/dL (8.5-10.1); CARBON DIOXIDE 22 mmol/L (21-32); CHLORIDE 103 mmol/L (98-107); CREATININE 0.6 mg/dL (0.6-1.0); GFR 129.7; GLUCOSE 110 mg/dL (70-99); SODIUM 138 mmol/L (136-145)
[2017-06-23 12:34] LABS: BASO % 1 % (0-3); EOS % 1 % (0-3); HEMATOCRIT 30.1 % (36.0-47.0); HEMOGLOBIN 9.6 g/dL (12.0-15.5); LYMPH # 1.6 x10^3/uL (1.0-4.8); LYMPH % 32 % (24-48); MEAN CORPUSCULAR HEMOGLOBIN 29 pg (25-35); MEAN CORPUSCULAR HGB CONC 32 g/dL (31-37); MEAN CORPUSCULAR VOLUME 90 fL (79-100); MONO # 0.7 x10^3/uL (0.0-1.1); MONO % 14 % (0-9); NEUT # 2.7 x10^3uL (1.8-7.7); NEUT % 53 % (31-73); PLATELET COUNT 234 x10^3/uL (140-400); RED BLOOD COUNT 3.34 x10^6/uL (3.50-5.40); RED CELL DISTRIBUTION WIDTH 18.2 % (11.5-14.5); WHITE BLOOD COUNT 5.1 x10^3/uL (4.0-11.0)
[2017-06-23 12:35] LABS: ALBUMIN/GLOBULIN RATIO 0.4 (1.0-1.7); ALK PHOS 199 U/L (46-116); ALT (SGPT) 15 U/L (14-59); AST (SGOT) 42 U/L (15-37); MAGNESIUM 2.2 mg/dL (1.8-2.4); TOTAL BILIRUBIN 10.1 mg/dL (0.2-1.0); TOTAL PROTEIN 7.5 g/dL (6.4-8.2)
[2017-06-23 12:38] LABS: TROPONINI < 0.017 ng/mL (0.000-0.055)
[2017-06-23 12:44] LABS: NT-PRO BNP 7006 pg/mL (0-124)
[2017-06-23 12:44] LABS: CKMB INDEX 0.4 % (0-4); CKMB MASS 0.8 ng/mL (0.0-3.6); CREATINE KINASE 184 U/L (26-192)
[2017-06-23] MEDS: IV NORMAL SALINE 500ML BAG 500 ML IV (14:30)
[2017-06-23] MEDS: AMIODARONE 75 MG in IV DEXTROSE 5% 100 ML IV (14:35)
[2017-06-23] MEDS: AMIODARONE 900 MG in IV DEXTROSE 5% 500 ML IV (14:35)
[2017-06-23] MEDS ORDERED: ACETAMINOPHEN 325 MG TABLET. PO (15:15)
[2017-06-23] MEDS ORDERED: ONDANSETRON PF 4 MG/2 ML VIAL. IV (15:15)
[2017-06-23] MEDS: DRONEDARONE HCL 400 MG TABLET PO (18:39)
[2017-06-23] MEDS: methIMAzole 10 MG TABLET PO (20:39)
[2017-06-23] MEDS: PROPRANOLOL 40 MG TABLET. PO (20:39)
[2017-06-23] MEDS ORDERED: APIXABAN 5 MG TABLET. PO (21:00)
[2017-06-24 00:07] LABS: MRSA BY PCR Negative (Negative)
[2017-06-24 05:17] LABS: ADD MAN DIFF? NO
[2017-06-24 05:39] LABS: BASO % 1 % (0-3); EOS # 0.1 x10^3/uL (0.0-0.7); EOS % 1 % (0-3); HEMATOCRIT 28.6 % (36.0-47.0); HEMOGLOBIN 9.4 g/dL (12.0-15.5); LYMPH # 1.5 x10^3/uL (1.0-4.8); LYMPH % 27 % (24-48); MEAN CORPUSCULAR HEMOGLOBIN 30 pg (25-35); MEAN CORPUSCULAR HGB CONC 33 g/dL (31-37); MEAN CORPUSCULAR VOLUME 91 fL (79-100); MONO # 0.8 x10^3/uL (0.0-1.1); MONO % 14 % (0-9); NEUT # 3.2 x10^3uL (1.8-7.7); NEUT % 57 % (31-73); PLATELET COUNT 156 x10^3/uL (140-400); RED BLOOD COUNT 3.14 x10^6/uL (3.50-5.40); WHITE BLOOD COUNT 5.6 x10^3/uL (4.0-11.0)
[2017-06-24 05:53] LABS: ALBUMIN 1.8 g/dL (3.4-5.0); ALK PHOS 186 U/L (46-116); ALT (SGPT) 14 U/L (14-59); ANION GAP 13 (6-14); AST (SGOT) 32 U/L (15-37); BLOOD UREA NITROGEN 26 mg/dL (7-20); CARBON DIOXIDE 20 mmol/L (21-32); CHLORIDE 104 mmol/L (98-107); CREATININE 0.8 mg/dL (0.6-1.0); DIRECT BILIRUBIN 8.3 mg/dL (0.0-0.2); GLUCOSE 84 mg/dL (70-99); POTASSIUM 4.2 mmol/L (3.5-5.1); SODIUM 137 mmol/L (136-145); TOTAL BILIRUBIN 9.4 mg/dL (0.2-1.0)
[2017-06-24] MEDS: DRONEDARONE HCL 400 MG TABLET PO (08:00)
[2017-06-24] MEDS ORDERED: ONDANSETRON PF 4 MG/2 ML VIAL. IV (08:30)
[2017-06-24] MEDS ORDERED: FUROSEMIDE 20 MG TABLET PO (09:00)
[2017-06-24] MEDS ORDERED: LEVONORGESTREL ETH ESTRADIOL PO (09:00)
[2017-06-24] MEDS: PROPRANOLOL 40 MG TABLET. PO ×2 (09:00→21:00)
[2017-06-24] MEDS: methIMAzole 10 MG TABLET PO ×3 (09:37→20:32)
[2017-06-24] MEDS: DIGOXIN 125 MCG TABLET. PO ×2 (09:37→20:33)
[2017-06-24] MEDS: ANTI-COAG MONITOR BY PHARMACY. MC (09:39)
[2017-06-24 09:40] LABS: INR 1.7 (0.8-1.1); PROTHROMBIN TIME PATIENT 19.3 SEC (11.7-14.0)
[2017-06-24] MEDS ORDERED: LIDOCAINE WITH 8.4% SOD BICARB 3 ML DISP.SYRIN. IJ (09:51)
[2017-06-24 10:06] LABS: FREE T4 4.85 ng/dL (0.76-1.46)
[2017-06-24 10:11] LABS: THYROID STIM HORMONE (TSH) < 0.007 uIU/mL (0.358-3.74)
[2017-06-24] MEDS ORDERED: NOREPINEPHRINE VIAL 16 MG in IV NORMAL SALINE 250ML 250 ML IV (10:15)
[2017-06-24] MEDS: ALBUMIN HUMAN 25% 100 ML IV ×2 (11:32→20:32)
[2017-06-24] MEDS ORDERED: FUROSEMIDE 40 MG/4 ML VIAL. IVP (14:00)
[2017-06-24] MEDS: FUROSEMIDE 20 MG TABLET PO (14:11)
[2017-06-24] MEDS: FUROSEMIDE INJ 100 MG in IV NORMAL SALINE 100ML 100 ML IV (18:26)
[2017-06-24] MEDS: AMIODARONE 900 MG in IV DEXTROSE 5% 500 ML IV (18:26)
[2017-06-25] MEDS: FUROSEMIDE INJ 100 MG in IV NORMAL SALINE 100ML 100 ML IV ×2 (07:16→17:33)
[2017-06-25] MEDS: methIMAzole 10 MG TABLET PO ×3 (08:23→20:42)
[2017-06-25] MEDS: PROPRANOLOL 40 MG TABLET. PO ×2 (08:23→20:42)
[2017-06-25] MEDS: ALBUMIN HUMAN 25% 100 ML IV ×3 (08:24→22:10)
[2017-06-25 08:39] LABS: ADD MAN DIFF? NO
[2017-06-25 08:43] LABS: BASO # 0.1 x10^3/uL (0.0-0.2); BASO % 1 % (0-3); EOS # 0.1 x10^3/uL (0.0-0.7); EOS % 1 % (0-3); HEMATOCRIT 27.8 % (36.0-47.0); HEMOGLOBIN 9.1 g/dL (12.0-15.5); LYMPH # 1.2 x10^3/uL (1.0-4.8); LYMPH % 24 % (24-48); MEAN CORPUSCULAR HEMOGLOBIN 30 pg (25-35); MEAN CORPUSCULAR HGB CONC 33 g/dL (31-37); MEAN CORPUSCULAR VOLUME 91 fL (79-100); MONO # 0.7 x10^3/uL (0.0-1.1); MONO % 13 % (0-9); NEUT # 3.1 x10^3uL (1.8-7.7); NEUT % 61 % (31-73); PLATELET COUNT 134 x10^3/uL (140-400); RED BLOOD COUNT 3.06 x10^6/uL (3.50-5.40); RED CELL DISTRIBUTION WIDTH 17.8 % (11.5-14.5); WHITE BLOOD COUNT 5.1 x10^3/uL (4.0-11.0)
[2017-06-25] MEDS: DIGOXIN 125 MCG TABLET. PO (08:54)
[2017-06-25] MEDS: FUROSEMIDE 20 MG TABLET PO (09:00)
[2017-06-25 09:05] LABS: ALBUMIN 2.5 g/dL (3.4-5.0); ALBUMIN 2.6 g/dL (3.4-5.0); ALK PHOS 170 U/L (46-116); ALT (SGPT) 15 U/L (14-59); ANION GAP 12 (6-14); AST (SGOT) 30 U/L (15-37); BLOOD UREA NITROGEN 34 mg/dL (7-20); CALCIUM 8.3 mg/dL (8.5-10.1); CARBON DIOXIDE 22 mmol/L (21-32); CHLORIDE 103 mmol/L (98-107); CREATININE 1.4 mg/dL (0.6-1.0); DIRECT BILIRUBIN 7.6 mg/dL (0.0-0.2); GFR 48.8; GLUCOSE 87 mg/dL (70-99); MAGNESIUM 2.1 mg/dL (1.8-2.4); PHOSPHORUS 4.4 mg/dL (2.6-4.7); POTASSIUM 3.9 mmol/L (3.5-5.1); SODIUM 137 mmol/L (136-145); TOTAL BILIRUBIN 8.5 mg/dL (0.2-1.0); TOTAL PROTEIN 7.2 g/dL (6.4-8.2)
[2017-06-25] MEDS: ANTI-COAG MONITOR BY PHARMACY. MC (14:42)
[2017-06-25] MEDS: DRONEDARONE HCL 400 MG TABLET PO (17:33)
[2017-06-26 01:13] LABS: HCV ANTIBODY 0.1 s/co ratio (0.0-0.9); HEP A IGM ABDY Negative (Negative); HEP B SURFACE AG Negative (Negative)
[2017-06-26 06:16] LABS: ADD MAN DIFF? NO
[2017-06-26 06:24] LABS: BASO % 1 % (0-3); EOS # 0.1 x10^3/uL (0.0-0.7); EOS % 1 % (0-3); HEMATOCRIT 25.5 % (36.0-47.0); HEMOGLOBIN 8.5 g/dL (12.0-15.5); LYMPH # 1.1 x10^3/uL (1.0-4.8); LYMPH % 21 % (24-48); MEAN CORPUSCULAR HEMOGLOBIN 30 pg (25-35); MEAN CORPUSCULAR HGB CONC 34 g/dL (31-37); MEAN CORPUSCULAR VOLUME 89 fL (79-100); MONO # 0.7 x10^3/uL (0.0-1.1); MONO % 13 % (0-9); NEUT # 3.5 x10^3uL (1.8-7.7); NEUT % 64 % (31-73); PLATELET COUNT 142 x10^3/uL (140-400); RED BLOOD COUNT 2.87 x10^6/uL (3.50-5.40); RED CELL DISTRIBUTION WIDTH 17.5 % (11.5-14.5); WHITE BLOOD COUNT 5.4 x10^3/uL (4.0-11.0)
[2017-06-26 06:36] LABS: ALBUMIN 3.2 g/dL (3.4-5.0); ALBUMIN/GLOBULIN RATIO 0.8 (1.0-1.7); ALK PHOS 145 U/L (46-116); ALT (SGPT) 16 U/L (14-59); ANION GAP 12 (6-14); AST (SGOT) 26 U/L (15-37); BLOOD UREA NITROGEN 35 mg/dL (7-20); BUN/CREATININE RATIO 23 (6-20); CALCIUM 8.4 mg/dL (8.5-10.1); CARBON DIOXIDE 23 mmol/L (21-32); CHLORIDE 103 mmol/L (98-107); CREATININE 1.5 mg/dL (0.6-1.0); GLUCOSE 99 mg/dL (70-99); MAGNESIUM 1.9 mg/dL (1.8-2.4); PHOSPHORUS 4.5 mg/dL (2.6-4.7); POTASSIUM 3.3 mmol/L (3.5-5.1); SODIUM 138 mmol/L (136-145); TOTAL BILIRUBIN 7.5 mg/dL (0.2-1.0); TOTAL PROTEIN 7.3 g/dL (6.4-8.2)
[2017-06-26] MEDS: FUROSEMIDE INJ 100 MG in IV NORMAL SALINE 100ML 100 ML IV (07:46)
[2017-06-26] MEDS: methIMAzole 10 MG TABLET PO ×3 (08:52→20:40)
[2017-06-26] MEDS: DIGOXIN 125 MCG TABLET. PO (08:53)
[2017-06-26] MEDS: DRONEDARONE HCL 400 MG TABLET PO ×2 (08:53→17:14)
[2017-06-26] MEDS: PROPRANOLOL 40 MG TABLET. PO ×2 (08:53→20:41)
[2017-06-26] MEDS: ALBUMIN HUMAN 25% 100 ML IV (08:54)
[2017-06-26] MEDS ORDERED: POTASSIUM CHLORIDE 20MEQ 50 ML IV ×4 (11:30→12:45)
[2017-06-26] MEDS ORDERED: MAGNESIUM SULFATE 2GM 50 ML IV (11:30)
[2017-06-26] MEDS: POTASSIUM CHLORIDE 20MEQ 50 ML IV (11:45)
[2017-06-26] MEDS: POTASSIUM CHLORIDE 20 MEQ/15 ML ORAL LIQUID. PO (12:00)
[2017-06-26] MEDS: POTASSIUM CHLORIDE 20 MEQ TABLET.ER. PO (12:15)
[2017-06-26 14:30] LABS: ANION GAP 14 (6-14); BLOOD UREA NITROGEN 35 mg/dL (7-20); CALCIUM 8.4 mg/dL (8.5-10.1); CARBON DIOXIDE 23 mmol/L (21-32); CHLORIDE 103 mmol/L (98-107); CREATININE 1.4 mg/dL (0.6-1.0); GFR 48.8; GLUCOSE 104 mg/dL (70-99); POTASSIUM 3.1 mmol/L (3.5-5.1); SODIUM 140 mmol/L (136-145)
[2017-06-26] MEDS: POTASSIUM CHLORIDE 10 MEQ in IV NORMAL SALINE 100ML 100 ML IV ×4 (18:17→21:48)
[2017-06-26 19:53] LABS: INR 1.8 (0.8-1.1); PROTHROMBIN TIME PATIENT 19.6 SEC (11.7-14.0)
[2017-06-27] MEDS: FUROSEMIDE INJ 100 MG in IV NORMAL SALINE 100ML 100 ML IV ×2 (00:21→23:43)
[2017-06-27 00:33] LABS: POTASSIUM 3.3 mmol/L (3.5-5.1)
[2017-06-27] MEDS: POTASSIUM CHLORIDE 20 MEQ TABLET.ER. PO ×3 (02:18→11:22)
[2017-06-27 05:39] LABS: ADD MAN DIFF? NO
[2017-06-27 05:57] LABS: BASO % 1 % (0-3); EOS # 0.1 x10^3/uL (0.0-0.7); EOS % 1 % (0-3); HEMOGLOBIN 8.1 g/dL (12.0-15.5); LYMPH % 20 % (24-48); MEAN CORPUSCULAR HEMOGLOBIN 30 pg (25-35); MEAN CORPUSCULAR HGB CONC 34 g/dL (31-37); MEAN CORPUSCULAR VOLUME 89 fL (79-100); MONO # 0.7 x10^3/uL (0.0-1.1); MONO % 14 % (0-9); NEUT # 3.3 x10^3uL (1.8-7.7); NEUT % 64 % (31-73); PLATELET COUNT 141 x10^3/uL (140-400); RED CELL DISTRIBUTION WIDTH 17.8 % (11.5-14.5); WHITE BLOOD COUNT 5.2 x10^3/uL (4.0-11.0)
[2017-06-27 06:50] LABS: ALBUMIN/GLOBULIN RATIO 0.8 (1.0-1.7); ALK PHOS 133 U/L (46-116); ALT (SGPT) 14 U/L (14-59); ANION GAP 13 (6-14); AST (SGOT) 28 U/L (15-37); BLOOD UREA NITROGEN 32 mg/dL (7-20); BUN/CREATININE RATIO 27 (6-20); CALCIUM 8.4 mg/dL (8.5-10.1); CARBON DIOXIDE 23 mmol/L (21-32); CHLORIDE 105 mmol/L (98-107); CREATININE 1.2 mg/dL (0.6-1.0); GFR 58.3; GLUCOSE 97 mg/dL (70-99); MAGNESIUM 1.6 mg/dL (1.8-2.4); PHOSPHORUS 3.6 mg/dL (2.6-4.7); POTASSIUM 3.3 mmol/L (3.5-5.1); SODIUM 141 mmol/L (136-145)
[2017-06-27] MEDS: methIMAzole 10 MG TABLET PO ×3 (09:18→20:37)
[2017-06-27] MEDS: DRONEDARONE HCL 400 MG TABLET PO ×2 (09:19→14:55)
[2017-06-27] MEDS: DIGOXIN 125 MCG TABLET. PO (09:20)
[2017-06-27] MEDS: PROPRANOLOL 40 MG TABLET. PO (09:20)
[2017-06-27] MEDS: MAGNESIUM SULFATE 2GM 50 ML IV (09:21)
[2017-06-27] MEDS ORDERED: POTASSIUM CHLORIDE 20 MEQ/15 ML ORAL LIQUID. PO (14:00)
[2017-06-27] MEDS ORDERED: MAGNESIUM SULFATE 2GM 50 ML IV (14:00)
[2017-06-27] MEDS ORDERED: ELECTROLYTE (NON-ICU) PROTOCOL MC (14:00)
[2017-06-27] MEDS ORDERED: SODIUM PHOSPHATE 15 MMOL in IV NORMAL SALINE 250ML 250 ML IV (14:00)
[2017-06-27] MEDS: POTASSIUM CHLORIDE 20 MEQ/15 ML ORAL LIQUID. FT (14:54)
[2017-06-27 15:23] LABS: POTASSIUM 3.3 mmol/L (3.5-5.1)
[2017-06-27] MEDS: METOPROLOL TART IMMED RELEASE 25 MG TABLET. PO ×2 (17:57→23:43)
[2017-06-27 18:13] LABS: POTASSIUM 3.8 mmol/L (3.5-5.1)
[2017-06-27] MEDS: MAGNESIUM OXIDE 400 MG TABLET PO (20:38)
[2017-06-27] MEDS ORDERED: POTASSIUM & SODIUM PHOSPHATES PACKET. PO (21:00)
[2017-06-27] MEDS ORDERED: PROPRANOLOL 40 MG TABLET. PO (21:00)
[2017-06-27 21:01] LABS: POTASSIUM 3.9 mmol/L (3.5-5.1)
[2017-06-28 00:36] LABS: POTASSIUM 3.9 mmol/L (3.5-5.1)
[2017-06-28 03:42] LABS: POTASSIUM 3.6 mmol/L (3.5-5.1)
[2017-06-28] MEDS: METOPROLOL TART IMMED RELEASE 25 MG TABLET. PO ×4 (06:06→23:39)
[2017-06-28 06:29] LABS: MAGNESIUM 1.6 mg/dL (1.8-2.4)
[2017-06-28 06:35] LABS: ALBUMIN 2.7 g/dL (3.4-5.0); ANION GAP 10 (6-14); BLOOD UREA NITROGEN 26 mg/dL (7-20); CALCIUM 7.8 mg/dL (8.5-10.1); CARBON DIOXIDE 25 mmol/L (21-32); CHLORIDE 105 mmol/L (98-107); GFR 71.9; GLUCOSE 109 mg/dL (70-99); PHOSPHORUS 3.2 mg/dL (2.6-4.7); POTASSIUM 3.6 mmol/L (3.5-5.1); SODIUM 140 mmol/L (136-145)
[2017-06-28] MEDS: MAGNESIUM OXIDE 400 MG TABLET PO ×2 (08:46→20:03)
[2017-06-28] MEDS: DRONEDARONE HCL 400 MG TABLET PO ×2 (08:48→16:53)
[2017-06-28] MEDS: DIGOXIN 125 MCG TABLET. PO (08:48)
[2017-06-28] MEDS: methIMAzole 10 MG TABLET PO ×3 (09:01→20:03)
[2017-06-28 10:12] LABS: POTASSIUM 3.4 mmol/L (3.5-5.1)
[2017-06-28] MEDS: POTASSIUM CHLORIDE 20 MEQ TABLET.ER. PO ×2 (10:26→17:55)
[2017-06-28] MEDS: MAGNESIUM SULFATE 2GM 50 ML IV (16:43)
[2017-06-28] MEDS: FUROSEMIDE INJ 100 MG in IV NORMAL SALINE 100ML 100 ML IV (23:40)
[2017-06-29 00:53] LABS: POTASSIUM 3.1 mmol/L (3.5-5.1)
[2017-06-29] MEDS: POTASSIUM CHLORIDE 20 MEQ TABLET.ER. PO ×3 (01:15→13:36)
[2017-06-29 06:11] LABS: MAGNESIUM 1.6 mg/dL (1.8-2.4)
[2017-06-29] MEDS: METOPROLOL TART IMMED RELEASE 25 MG TABLET. PO (06:13)
[2017-06-29 06:19] LABS: ALBUMIN 2.5 g/dL (3.4-5.0); ANION GAP 12 (6-14); BLOOD UREA NITROGEN 24 mg/dL (7-20); CALCIUM 7.9 mg/dL (8.5-10.1); CARBON DIOXIDE 25 mmol/L (21-32); CHLORIDE 104 mmol/L (98-107); CREATININE 0.8 mg/dL (0.6-1.0); GLUCOSE 98 mg/dL (70-99); PHOSPHORUS 3.4 mg/dL (2.6-4.7); SODIUM 141 mmol/L (136-145)
[2017-06-29] MEDS: MAGNESIUM SULFATE 2GM 50 ML IV ×2 (06:38→12:09)
[2017-06-29] MEDS: DIGOXIN 125 MCG TABLET. PO (08:37)
[2017-06-29] MEDS: MAGNESIUM OXIDE 400 MG TABLET PO (08:38)
[2017-06-29] MEDS: methIMAzole 10 MG TABLET PO ×2 (08:38→13:36)
[2017-06-29] MEDS: DRONEDARONE HCL 400 MG TABLET PO (08:38)
[2017-06-29] MEDS: METOPROLOL TART IMMED RELEASE 50 MG TABLET. PO ×2 (12:09→12:10)
== END 2017-06-29 16:00 | disposition home or self-care (01) | DRG 643 ==
LOC: 2 SOUTH 06-26 18:46 → ER 11:28 → 1 WEST ICU 12:16
PROC: 02H633Z Insertion of Infusion Device into Right Atrium, Percutaneous Approach (ICD-10-PCS; principal; 2017-06-23)
DX: E05.01 Thyrotoxicosis with diffuse goiter with thyrotoxic crisis or storm (principal); N17.0 Acute kidney failure with tubular necrosis; I50.43 Acute on chronic combined systolic (congestive) and diastolic (congestive) heart failure; E43 Unspecified severe protein-calorie malnutrition; I27.81 Cor pulmonale (chronic); R18.8 Other ascites; K83.1 Obstruction of bile duct; I42.9 Cardiomyopathy, unspecified; I48.91 Unspecified atrial fibrillation; D63.8 Anemia in other chronic diseases classified elsewhere; E03.9 Hypothyroidism, unspecified; E21.3 Hyperparathyroidism, unspecified; Z68.31 Body mass index [BMI] 31.0-31.9, adult; E87.6 Hypokalemia; F41.9 Anxiety disorder, unspecified; Z82.49 Family history of ischemic heart disease and other diseases of the circulatory system; Z91.19 Patient's noncompliance with other medical treatment and regimen
CPT/HCPCS: 36415; 36569; 71045; 71046; 76700; 80048; 80053; 80069; 80074; 80076; 82553; 83735; 83880; 84100; 84132; 84439; 84443; 84481; 84484; 85025; 85610; 87641; 93005; 93306; 93970; 96361; 96374; 96375; 99291; 99291-25; J0282; J1160; J3490; J7030; J7040; J7060; P9046

== ENCOUNTER 2019-06-06 18:06 | Emergency (ER) | payer OTHER, BC ==
[~2019-06-06] VITALS: Ht 157.5 cm; Wt 79.4 kg
[~2019-06-06 18:06] MED LIST: APIX5TAB PO; DIGO125T3 PO; DRON400T PO; FURO-69 PO; FURO80TA72 PO; IBUP-1060 PO; LEVO1TAB33 PO; LISI2.5T PO; MAGN400T5 PO; METH-184 PO; METH-364 PO; METO50TA6 PO; POTA20TA4 PO; PROP40TA PO
[2019-06-06 18:25] VITALS: BP 123/58
[2019-06-06] MEDS ORDERED: LIDOCAINE 1% PF 2 ML VIAL. INJ ONE (18:30)
--- NOTE | 2019-06-06 18:35 | PHYS DOC ---
Past Medical History Past Medical History: Anxiety, Hyperthyroid (OJ TORRES) Past Surgical History: Other Additional Past Surgical Histo: back surgery (OJ TORRES) Alcohol Use: Occasionally Drug Use: None (OJ TORRES) Attending Signature I have participated in the care of this patient and I have reviewed and agree with all pertinent clinical information above including history, exam, and recommendations. (KEYLA BONILLA MD) Adult General Chief Complaint Chief Complaint: LACERATION/AVULSION HPI HPI Patient is a 49 year old F who was at work [employer] and was taking out the trash and there was some broken dishes in the trash and she cut her R palm. Pt is on blood thinners for Afib and reports the laceration would not stop bleeding so she came to ER. Pt is up to date on her tetanus. (OJ TORRES) Review of Systems Review of Systems Constitutional: Denies fever or chills Respiratory: Denies cough or shortness of breath Cardiovascular: Denies chest pain GI: Denies abdominal pain, nausea, vomiting, bloody stools or diarrhea Musculoskeletal: Denies back pain or joint pain. Reports R hand pain Integument: Denies rash or skin lesions. Reports R palm laceration. Neurologic: Denies headache, focal weakness or sensory changes All other systems were reviewed and found to be within normal limits, except as documented in this note. (OJ TORRES) Current Medications Current Medications Current Medications Medications (Trade) Dose Ordered Sig/Byron Start Time Stop Time Status Last Admin Dose Admin Lidocaine HCl (Xylocaine-Mpf 1% 2ml Vial) 2 ml STK-MED ONCE 06/06/19 18:42 06/06/19 18:42 DC (KEYLA BONILLA MD) Allergies Allergies Allergies Coded Allergies Type Severity Reaction Last Updated Verified No Known Drug Allergies 01/10/17 No (KEYLA BONILLA MD) Physical Exam Physical Exam Constitutional: Well developed, well nourished, no acute distress, non-toxic appearance. Neck: Normal range of motion, no tenderness, supple, no stridor. Cardiovascular:Heart rate regular rhythm, no murmur Lungs & Thorax: Bilateral breath sounds clear to auscultation Abdomen: Bowel sounds normal, soft, no tenderness, no masses, no pulsatile masses. Skin: Laceration of R palm. 2 cm, no active bleeding at time of exam. Back: No tenderness, no CVA tenderness. Extremities: Full ROM of all fingers, thumb and wrist of R hand. Neurologic: Alert and oriented X 3, normal motor function, normal sensory function, no focal deficits noted. Psychologic: Affect normal, judgement normal, mood normal. (OJ TORRES) Current Patient Data Vital Signs Vital Signs Date Time Temp Pulse Resp B/P (MAP) Pulse Ox O2 Delivery O2 Flow Rate FiO2 06/06/19 18:25 98.6 83 18 123/58 (79) 97 Room Air 98.6 (KEYLA BONILLA MD) EKG EKG [] (OJ TORRES) Radiology/Procedures Radiology/Procedures [] (OJ TORRES) Course & Med Decision Making Course & Med Decision Making Pertinent Labs and Imaging studies reviewed. (See chart for details) Pt to have sutures removed in 7-10 days. Monitor for signs and symptoms of infection and return with any worsening symptoms. (OJ TORRES) Dragon Disclaimer Dragon Disclaimer This electronic medical record was generated, in whole or in part, using a voice recognition dictation system. (OJ TORRES) Laceration Repair Lac Repair Indication: R palm laceration Procedure: The patient was placed in the appropriate position and anesthesia around the wound with 1% lidocaine, 2 mls. The area was then cleansed with betadine. The laceration was closed with 5-0 nylon, 3 sutures. The wound area was then dressed with nonstick gauze and coban. Total repaired wound length: 4ml flap laceration Other Items: hemostasis achieved The patient tolerated the procedure well Complications: none (OJ TORRES) Departure Departure Impression: Primary Impression: Laceration of hand Disposition: 01 HOME, SELF-CARE Condition: IMPROVED Referrals: UNKNOWN PCP NAME (PCP) Patient Instructions: Stitches, [place] or Skin Adhesive Strips, [id number] Additional Instructions: Sutures out in 7-10 days. Monitor for signs and symptoms of infection. OJ TORRES Jun 06, 2019 18:35 KEYLA BONILLA MD Jun 09, 2019 18:08
[2019-06-06] MEDS ORDERED: LIDOCAINE 1% PF 2 ML VIAL. ONE (18:42)
== END 2019-06-06 19:05 | disposition home or self-care (01) ==
LOC: ER 18:06
DX: S61.411A Laceration without foreign body of right hand, initial encounter (principal); Y28.8XXA Contact with other sharp object, undetermined intent, initial encounter; Y93.89 Activity, other specified; Y92.89 Other specified places as the place of occurrence of the external cause; Y99.0 Civilian activity done for income or pay
CPT/HCPCS: 12001; 99283